=== PATIENT | male | born 1990 | race Caucasian/White ===

== ENCOUNTER 2019-02-24 23:08 | Inpatient (IN) | payer OTHER, SELFPAY ==
[~2019-02-24 23:08] MED LIST: ISOVUE-370 76%-LOCM 1 ML ONE
[2019-02-24] MEDS ORDERED: Adacel (T-DAP) 0.5 ML SYRINGE ONE ×2 (23:27→23:45)
[2019-02-24] MEDS ORDERED: Fentanyl 100 MCG/2 ML VIAL ONE ×2 (23:27→23:50)
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
[2019-02-24 23:37] LABS: Hemoglobin 13.2 g/dL (14.0-18.0); Mean Corpuscular HGB CONC 32.7 g/dL (32.0-36.0); Mean Corpuscular Hemoglobin 30.4 pg (27.0-31.0); Mean Platelet Volume 7.9 fL (7.4-10.4); Platelet Count 255 thou/uL (130-400); Red Blood Cell (RBC) Count 4.34 mill/uL (4.70-6.10); White Blood Cell (WBC) Count 24.7 thou/uL (4.8-10.8)
[2019-02-24 23:42] LABS: INR-International Normal Ratio 1.4; PTT 31.1 SEC (22.9-36.1); Prothrombin Time 17.6 SEC (12.0-14.7)
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
[2019-02-24 23:52] LABS: Band 19 % (5-11); Eosinophils 1 % (0-10); Lymphocytes 30 % (21-51); MDiff Complete? YES; Metamyelocyte 1 % (0-0); Monocytes 1 % (0-10); Myelocyte 1 % (0-0); Neutrophil 45 % (42-75); Reactive Lymphocytes 2 % (0-10)
[2019-02-24] MEDS ORDERED: manNITOL 20% 500 ML ONE (23:53)
[2019-02-24 23:54] LABS: ALT (SGPT) 278 U/L (8-55); AST (SGOT) 389 U/L (5-34); Albumin 3.5 g/dL (3.5-5.0); Alkaline Phosphatase 61 U/L (40-150); Anion Gap 25 mmol/L (10-20); BUN (Urea Nitrogen) 11 mg/dL (8.9-20.6); Bilirubin, Total 0.5 mg/dL (0.2-1.2); Calc. Creatinine Clearance 0 mL/min (70-130); Calcium 7.7 mg/dL (7.8-10.44); Carbon Dioxide 10 mmol/L (22-29); Chloride 99 mmol/L (98-107); Estimated GFR-MDRD 55; Globulin 2.5 g/dL (2.4-3.5); Glucose 205 mg/dL (70-105); Lipase 63 U/L (8-78); Potassium 3.3 mmol/L (3.5-5.1); Sodium 131 mmol/L (136-145)
[2019-02-24 23:56] LABS: Actual Bicarbonate (HCO3a) 12.8 mEq/L (22-28); Analyzer IN Cardio ER; Base Excess (BEa) -14.4 mEq/L (-2.0 to +3.0); CO2 Tension 34.8 mmHg (35.0-45.0); Calcium, Ionized 0.96 mmol/L (1.12-1.30); Carboxyhemoglobin (COHb) 0.6 gm% (0.0-3.0); Hemoglobin (Hb) 12.6 g/dL (14.0-18.0); O2 Tension (PaO2) 92.4 mmHg (80.0-100.0); Potassium - ABG Lab 3.18 mmol/L (3.70-5.30)
[2019-02-24 23:57] LABS: Puncture Site RRA; pH, Arterial 7.19 (7.35-7.45)
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
[2019-02-25] MEDS ORDERED: fentaNYL Citrate/PF 2,000 MCG in Sodium Chloride 0.9% 60 ML IV SCH (00:10)
[2019-02-25] MEDS ORDERED: Propofol 1,000 MG/100 ML VIAL IV ONE (00:16)
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
[2019-02-25 00:20] LABS: Bilirubin Negative (Negative); Blood, Urine Trace (Negative); Clarity CLEAR (Clear); Glucose, Urine (Dipstick) Negative (Negative); Leukocyte Negative (Negative); Nitrite Negative (Negative); Protein, Urine (Dipstick) Negative (Neg-Trace); Specific Gravity, Urine 1.001 (1.002-1.036); Urobilinogen 0.2 mg/dL (0.2-1.0)
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
[2019-02-25 00:22] LABS: Pathc Cast-AUWi Flag 0.27 (0-2.49)
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
[2019-02-25 00:34] LABS: Hyaline Casts/LPF NONE SEEN LPF (0-3 Hyaline); RBC/HPF 0-3 HPF (0-3)
[2019-02-25 00:35] LABS: Bacteria/HPF Rare-Few HPF (None Seen); Squamous Epithelial None Seen HPF (0-3); WBC/HPF 0-3 HPF (0-3)
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
[2019-02-25] MEDS ORDERED: Ventilator Sedation Protocol 1 EACH FS SCH (00:56)
[2019-02-25] MEDS ORDERED: Sodium Chloride 0.9% 1,000 ML IV SCH (00:56)
[2019-02-25] MEDS ORDERED: Dextrose 5% in Water 1,000 ML IV PRN (00:56)
[2019-02-25] MEDS ORDERED: Dextrose 50% Abboject 50 ML SYRINGE SLOW IVP PRN (00:56)
[2019-02-25] MEDS ORDERED: Ondansetron ODT 4 MG TAB PO PRN (00:56)
[2019-02-25] MEDS ORDERED: Ondansetron PF 4 MG/2 ML Vial IVP PRN (00:56)
[2019-02-25] MEDS ORDERED: Morphine 2 MG/ML SYRINGE SLOW IVP PRN (01:07)
[2019-02-25] MEDS ORDERED: Fentanyl BOLUS 250 ML IVPB PRN (01:07)
[2019-02-25] MEDS ORDERED: Lorazepam 2 MG/ML VIAL SLOW IVP PRN (01:07)
[2019-02-25] MEDS ORDERED: Propofol BOLUS 1,000 MG/100 ML VIAL IV PRN (01:07)
[2019-02-25] MEDS ORDERED: DISCONTINUE PREVIOUS NARCOTIC PAIN MEDICATIONS AND BENZODIAZEPINES FS SCH (01:07)
[2019-02-25] MEDS ORDERED: Fentanyl CADD 250 ML IVPB SCH (01:07)
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
[2019-02-25] MEDS: Mannitol 12.5 GM/50 ML SLOW IVP SCH ×4 (02:05→20:08)
[2019-02-25 02:07] LABS: Hemoglobin 15.4 g/dL (14.0-18.0)
--- NOTE | 2019-02-25 04:28 | OP ---
DATE OF PROCEDURE: 02/25/2019 PROCEDURE: Right side ICP monitor placement. PREOPERATIVE DIAGNOSES: Acute traumatic intracranial hemorrhage, diffuse subarachnoid hemorrhage, diffuse contusional injury. PROCEDURE NOTE: The patient's hair was shaved over the right frontal region. The area was prepped with chlorhexidine and draped in sterile fashion. A 1 cm incision was made over Abigail's notch. A twist drill was then used over the incision site through the skull. The dura was perforated with an 18-gauge spinal needle. The [facility] ICP monitor was connected and zeroed. It was then passed through the dura easily and secured in place. Initial opening pressure was 20 with a good waveform. The patient tolerated the procedure well. Job ID: [id number]
[2019-02-25] MEDS: CEFAZOLIN 2 GM in Premix Bag 1 BAG IVPB SCH ×3 (05:36→21:25)
[2019-02-25] MEDS ORDERED: Acetaminophen 1,000 MG in Premix Bag 1 BAG IVPB SCH (05:45)
[2019-02-25] MEDS ORDERED: CEFAZOLIN 1 GM VIAL SLOW IVP SCH (06:00)
[2019-02-25 06:28] LABS: Anion Gap 17 mmol/L (10-20); BUN (Urea Nitrogen) 12 mg/dL (8.9-20.6); Calc. Creatinine Clearance 108 mL/min (70-130); Carbon Dioxide 25 mmol/L (22-29); Chloride 103 mmol/L (98-107); Estimated GFR-MDRD 68; Glucose 117 mg/dL (70-105); Magnesium 2.2 mg/dL (1.6-2.6); Phosphorus 4.8 mg/dL (2.3-4.7); Potassium 4.1 mmol/L (3.5-5.1); Sodium 141 mmol/L (136-145)
[2019-02-25 06:30] LABS: Actual Bicarbonate (HCO3a) 25.3 mEq/L (22-28); Base Excess (BEa) -0.5 mEq/L (-2.0 to +3.0); CO2 Tension 45.4 mmHg (35.0-45.0); Calcium, Ionized 1.11 mmol/L (1.12-1.30); Carboxyhemoglobin (COHb) 0.9 gm% (0.0-3.0); Hemoglobin (Hb) 15.7 g/dL (14.0-18.0); O2 Tension (PaO2) 189.2 mmHg (80.0-100.0); Potassium - ABG Lab 4.22 mmol/L (3.70-5.30); pH, Arterial 7.36 (7.35-7.45)
[2019-02-25 06:31] LABS: Band 38 % (5-11); Lymphocytes 6 % (21-51); MDiff Complete? YES; Metamyelocyte 2 % (0-0); Monocytes 7 % (0-10); Neutrophil 47 % (42-75); Platelet Morphology Comment Appears Adequate
[2019-02-25 06:32] LABS: Puncture Site RRA
[2019-02-25 06:32] LABS: Hemoglobin 15.2 g/dL (14.0-18.0); Mean Corpuscular HGB CONC 32.5 g/dL (32.0-36.0); Mean Corpuscular Hemoglobin 29.3 pg (27.0-31.0); Mean Corpuscular Volume 90.1 fL (78.0-98.0); Platelet Count 208 thou/uL (130-400); RBC Distribution Width 13.8 % (11.5-14.5); Red Blood Cell (RBC) Count 5.19 mill/uL (4.70-6.10); White Blood Cell (WBC) Count 10.7 thou/uL (4.8-10.8)
[2019-02-25] MEDS: Propofol 1,000 MG/100 ML VIAL IV PRN (07:45)
[2019-02-25 09:18] LABS: Actual Bicarbonate (HCO3a) 25.9 mEq/L (22-28); Base Excess (BEa) 0.9 mEq/L (-2.0 to +3.0); CO2 Tension 42.5 mmHg (35.0-45.0); Calcium, Ionized 1.07 mmol/L (1.12-1.30); Carboxyhemoglobin (COHb) 0.7 gm% (0.0-3.0); Hemoglobin (Hb) 15.3 g/dL (14.0-18.0); O2 Tension (PaO2) 88.4 mmHg (80.0-100.0); Potassium - ABG Lab 4.78 mmol/L (3.70-5.30)
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
[2019-02-25 09:20] LABS: Puncture Site RRA
[2019-02-25 09:21] LABS: ALV-art Gradient 357.575 (0-20)
--- NOTE | 2019-02-25 09:22 | RAD ---
CHEST TWO VIEWS: Indication: Follow up intubation. Comparison: 02-24-19 FINDINGS: There is worsening airspace opacity within both lower lobes suspicious for worsening contusion or asp iration. There is perihilar airspace opacities which may be related to volume overload or additional regions of scattered perihilar contusions. Patient is intubated with gastric catheter placement. No d efinite pleural effusion is evident. There is a very tiny right apical pneumothorax that is below 10% in size. IMPRESSION: 1. Worsening perihilar airspace opacity may reflect worsening edema or hemorrhage. This is much more prominent within the infrahilar regions which may reflect worsening hemorrhage, contusions, or bilat eral aspiration. 2. Tiny right apical pneumothorax. The tiny right sided pneumothorax is likely stable to a comparison CT dated 02-24-19. 3. Intubation and gastric catheter placement. POS: [facility]
--- NOTE | 2019-02-25 09:32 | CT ---
CT OF THE BRAIN WITHOUT CONTRAST: INDICATION: Followup intracranial hemorrhage. COMPARISON: Prior exam dated 02/24/2019. FINDINGS: The intraparenchymal contusions involving the right inferotemporal lobe have increased in prominence. There are evolving contusions now present on the inferior aspects of both frontal lobes. The large st collection measures 2.6 x 0.9 cm on image 11 of series 2. The largest collection through the ante rior right temporal lobe measures approximately 1.5 cm. This is also seen on image 11 series 2. The re are small petechial hemorrhages that have developed along the left temporal lobe on image 15 of se jesse 2. The bilateral frontal lobe contusions have increased in prominence on image 24 of series 2. Scattered subarachnoid hemorrhage is relatively stable. There is some retained subarachnoid hemorrh age seen within the interpeduncular cistern of the middle cranial fossa. There is redistribution of the intraventricular hemorrhage within both lateral ventricles. The extraaxial hemorrhage overlying the anterior left temporal lobe is relatively stable. A small amount of subarachnoid hemorrhage over lies the lower anterior biju which is relatively stable. The subdural hematoma seen along the script supervisor ior falx and tentorium cerebelli is relatively stable. No midline shift or hydrocephalus is present. The crowding of the basilar cisterns in the basement of the cerebral sulci is relatively stable. T here has been interval placement of the intracranial bolt involving the right frontal regions. This projects into the right frontal lobe. The stellate skull base fractures extending obliquely across t he right temporal region, right TMJ, sphenoid bone, and into the left maxillary sinus is stable. The re is prominent air fluid level seen within the visualized paranasal sinuses. There is a small amoun t of effusion present within the right mastoid air cells. IMPRESSION: 1. Worsening and evolving intraparenchymal hematomas involving the frontal convexities, inferior fro ntal lobes, and anterior temporal lobes. 2. Redistribution of the subarachnoid hemorrhage now layered within both lateral ventricles and laye red within cisterns of the middle cranial fossa. 3. Stable extraaxial hemorrhage overlying the anterior left temporal lobe and stable subdural hemato ma involving the posterior falx and tentorium cerebelli. 4. Interval placement of a right frontal intracranial bolt with the tip projecting to the region of the right frontal lobe. 5. Diffuse cerebral edema with several sulcal effacement and crowding of basilar cisterns stable. 6. Stable skull base fracture. 7. Findings were called to FRANCISCO May, at 4:52 a.m. on 02/25/2019. CODE CR POS: [facility]
[2019-02-25] MEDS: Famotidine/PF 20 mg/2ml Vial SLOW IVP SCH ×2 (10:01→21:26)
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
[2019-02-25] MEDS: Bacitracin Zinc Ointment 30 gm TUBE TOP SCH (11:31)
[2019-02-25] MEDS: Acetaminophen 1,000 MG in Premix Bag 1 BAG IVPB SCH ×2 (11:31→14:17)
[2019-02-25] MEDS ORDERED: Albumin 5% 500 ML ONE (12:13)
[2019-02-25] MEDS ORDERED: Calcium Chloride 1 GM/10 ML Abboject SYRINGE IVP SCH (13:45)
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
[2019-02-25] MEDS: Acetaminophen 650 MG/20.3 ML UDCUP PER TUBE SCH ×2 (14:18→18:17)
[2019-02-25 15:40] LABS: ALV-art Gradient 228.625 (0-20); Actual Bicarbonate (HCO3a) 24.5 mEq/L (22-28); Base Excess (BEa) 0.6 mEq/L (-2.0 to +3.0); CO2 Tension 37.1 mmHg (35.0-45.0); Calcium, Ionized 1.21 mmol/L (1.12-1.30); Carboxyhemoglobin (COHb) 0.7 gm% (0.0-3.0); Hemoglobin (Hb) 13.3 g/dL (14.0-18.0); O2 Tension (PaO2) 81.5 mmHg (80.0-100.0); Potassium - ABG Lab 4.24 mmol/L (3.70-5.30); Puncture Site LINE; pH, Arterial 7.44 (7.35-7.45)
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
[2019-02-25] MEDS: Sodium Chloride 0.9% 1,000 ML IV SCH (18:19)
--- NOTE | 2019-02-25 20:15 | OP ---
DATE OF PROCEDURE: 02/25/2019 INDICATION: Art-line placement for invasive monitoring. CONSENT: Implied. PROCEDURE SUMMARY: A time-out was performed. My hands were washed immediately prior to the procedure. I wore surgical cap, mask with protective eye wear, sterile gown, and sterile gloves throughout the procedure. After Earnest test was performed to ensure adequate perfusion, the left wrist was prepped using chlorhexidine scrub and draped in a sterile fashion using the 3/4 sheet drape and sterile towels. The radial pulse was identified and the wrist was positioned in the usual fashion. Using an Arrow radial arterial line kit, a needle was inserted into the radial artery. Arterial blood was seen to pulsate in the flash chamber. The catheter was advanced easily into the radial artery. The needle was withdrawn. The catheter was sutured in place. Sterile Op-site was placed over the catheter at the insertion site. The patient tolerated the procedure without any hemodynamics compromise. At the time of the procedure completion, the catheter was connected to the cardiac tech and calibrated. Appropriate waveform and blood pressure tracing were observed. Estimated blood loss was approximately 5 mL. The plan was discussed with Dr. Simons, who agreed for art-line placement. Job ID: [id number]
[2019-02-25] MEDS ORDERED: Sodium Chloride 0.9% 500 ML IVPB PRN (22:27)
[2019-02-26] MEDS: Acetaminophen 650 MG/20.3 ML UDCUP PER TUBE SCH ×5 (00:15→23:13)
[2019-02-26] MEDS: Sodium Chloride 0.9% 1,000 ML IV SCH ×3 (00:16→23:14)
[2019-02-26] MEDS: Mannitol 12.5 GM/50 ML SLOW IVP SCH ×2 (00:16→08:17)
[2019-02-26 04:17] LABS: Anion Gap 14 mmol/L (10-20); BUN (Urea Nitrogen) 21 mg/dL (8.9-20.6); Calc. Creatinine Clearance 125 mL/min (70-130); Calcium 8.9 mg/dL (7.8-10.44); Carbon Dioxide 24 mmol/L (22-29); Chloride 109 mmol/L (98-107); Estimated GFR-MDRD 80; Glucose 141 mg/dL (70-105); Magnesium 2.6 mg/dL (1.6-2.6); Potassium 3.8 mmol/L (3.5-5.1); Sodium 143 mmol/L (136-145)
[2019-02-26 04:39] LABS: Band 25 % (5-11); Hemoglobin 11.5 g/dL (14.0-18.0); Lymphocytes 13 % (21-51); MDiff Complete? YES; Mean Corpuscular HGB CONC 33.7 g/dL (32.0-36.0); Mean Corpuscular Hemoglobin 30.8 pg (27.0-31.0); Mean Corpuscular Volume 91.4 fL (78.0-98.0); Mean Platelet Volume 8.6 fL (7.4-10.4); Monocytes 5 % (0-10); Neutrophil 57 % (42-75); Platelet Count 143 thou/uL (130-400); Red Blood Cell (RBC) Count 3.73 mill/uL (4.70-6.10); White Blood Cell (WBC) Count 12.2 thou/uL (4.8-10.8)
[2019-02-26] MEDS: Propofol 1,000 MG/100 ML VIAL IV PRN (05:20)
[2019-02-26] MEDS: CEFAZOLIN 2 GM in Premix Bag 1 BAG IVPB SCH ×3 (05:21→21:31)
--- NOTE | 2019-02-26 07:46 | RAD ---
AP VIEW CHEST: HISTORY: Respiratory failure. AP view chest obtained on 02/26/2019. Comparison made to a previous exam from 02/25/2019. FINDINGS: AP view chest demonstrates nasogastric and endotracheal tubes to be in place. A left subclavian centr al line is in place. Mild cardiomegaly seen. Pulmonary vascular congestion seen. There are some decreased airspace opacities in the right and left lung bases. Right clavicular fracture again seen. IMPRESSION: 1.: Decreased pulmonary vascular congestion and airspace opacities. 2: Lines and tubes in good position. Transcribed Date/Time: 02/26/2019 8:11 AM
--- NOTE | 2019-02-26 08:19 | OP ---
DATE OF PROCEDURE: 02/25/2019 PROCEDURE PERFORMED: Subclavian central line. INDICATION: Need for central venous access. Attending physician in attendance throughout the procedure, Dr. Du Simons. CONSENT: Consent was obtained from the family prior to procedure. Indication, risks, benefits were explained at length. Time-out was performed. Operative physicians sterilely gowned, gloved, and had protective eyewear and hat on during procedure. DESCRIPTION OF PROCEDURE: The patient was placed in Trendelenburg position. The left chest region was prepped using chlorhexidine, scrubbed and draped in sterile fashion using a foam drape. Anesthesia was achieved with 1% lidocaine. Introducer needle was inserted at the angle of Ted with the clavicle aiming at the suprasternal notch. Venous blood was withdrawn. Syringe was removed, and a guidewire was advanced into the introducer needle. Small incision was made in the skin surface with a scalpel and introducer needle was exchanged for dilator over the guidewire. After appropriate dilation was obtained, the dilator was exchanged over the wire for a 7-gauge central venous catheter. The wire was removed and the catheter was sutured in place at the 15 cm position. A sterile dressing was placed over the catheter at the insertion site. The patient tolerated the procedure well without any hemodynamic compromise. At the time of the procedure completion, all ports aspirated and flushed properly. A postprocedure x-ray showed correct placement of central venous catheter and intact lungs without evidence of pneumothorax. Estimated blood loss was 25 mL. Job ID: [id number]
[2019-02-26 09:03] LABS: Actual Bicarbonate (HCO3a) 21.7 mEq/L (22-28); Base Excess (BEa) -0.5 mEq/L (-2.0 to +3.0); CO2 Tension 28.2 mmHg (35.0-45.0); Calcium, Ionized 1.12 mmol/L (1.12-1.30); Carboxyhemoglobin (COHb) 0.8 gm% (0.0-3.0); Hemoglobin (Hb) 11.3 g/dL (14.0-18.0); O2 Tension (PaO2) 147.2 mmHg (80.0-100.0); Potassium - ABG Lab 3.68 mmol/L (3.70-5.30)
[2019-02-26 09:12] LABS: Puncture Site ART LINE
[2019-02-26] MEDS: Famotidine/PF 20 mg/2ml Vial SLOW IVP SCH ×2 (09:28→20:54)
[2019-02-26] MEDS: Bacitracin Zinc Ointment 30 gm TUBE TOP SCH (09:31)
[2019-02-26 10:08] LABS: Actual Bicarbonate (HCO3a) 23.4 mEq/L (22-28); CO2 Tension 34.1 mmHg (35.0-45.0); Calcium, Ionized 1.12 mmol/L (1.12-1.30); Carboxyhemoglobin (COHb) 0.7 gm% (0.0-3.0); Hemoglobin (Hb) 11.6 g/dL (14.0-18.0); O2 Tension (PaO2) 151.4 mmHg (80.0-100.0); pH, Arterial 7.46 (7.35-7.45)
[2019-02-26 10:12] LABS: ALV-art Gradient 162.475 (0-20)
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
[2019-02-26 14:41] LABS: Actual Bicarbonate (HCO3a) 25.8 mEq/L (22-28); Base Excess (BEa) 1.1 mEq/L (-2.0 to +3.0); CO2 Tension 41.8 mmHg (35.0-45.0); Calcium, Ionized 1.15 mmol/L (1.12-1.30); Carboxyhemoglobin (COHb) 0.7 gm% (0.0-3.0); Hemoglobin (Hb) 11.6 g/dL (14.0-18.0); O2 Tension (PaO2) 112.9 mmHg (80.0-100.0); Potassium - ABG Lab 4.02 mmol/L (3.70-5.30); pH, Arterial 7.41 (7.35-7.45)
[2019-02-26 14:45] LABS: Puncture Site ART LINE
[2019-02-26] MEDS ORDERED: Acetaminophen/Codeine 120-12MG/5 ML UDCUP PO PRN (15:16)
[2019-02-26 17:20] LABS: Bilirubin Negative (Negative); Blood, Urine Moderate (Negative); Clarity CLEAR (Clear); Glucose, Urine (Dipstick) Negative (Negative); Leukocyte Negative (Negative); Nitrite Negative (Negative); Protein, Urine (Dipstick) 30 mg/dL (Neg-Trace); Specific Gravity, Urine 1.039 (1.002-1.036); Urobilinogen 0.2 mg/dL (0.2-1.0); pH, Urine 6.5 (5.0-9.0)
[2019-02-26 17:22] LABS: Bacteria/HPF None Seen HPF (None Seen); Hyaline Casts/LPF 0-3 HYALINE CAST LPF (0-3 Hyaline); Pathc Cast-AUWi Flag 0.27 (0-2.49); RBC/HPF 0-3 HPF (0-3); Squamous Epithelial 0-3 HPF (0-3); WBC/HPF 0-3 HPF (0-3)
[2019-02-26 17:29] LABS: Urine Culture Reflex No No
[2019-02-26] MEDS: Piperacillin/Tazobactam 3.375 GM in Sodium Chloride 0.9% 100 ML IVPB SCH ×2 (17:34→23:13)
[2019-02-26] MEDS ORDERED: Fentanyl 100 MCG/2 ML VIAL SLOW IVP PRN (17:44)
[2019-02-26] MEDS ORDERED: Midazolam HCl 2 mg/2 ml Vial SLOW IVP PRN (17:44)
[2019-02-26] MEDS: Morphine 2 MG/ML SYRINGE SLOW IVP PRN (18:29)
[2019-02-26] MEDS: Senokot 8.6 MG TAB PO SCH (20:54)
[2019-02-26] MEDS: Amantadine HCl 100 mg Capsule PO SCH (20:54)
[2019-02-27] MEDS: Morphine 2 MG/ML SYRINGE SLOW IVP PRN ×3 (01:17→23:07)
[2019-02-27] MEDS: CEFAZOLIN 2 GM in Premix Bag 1 BAG IVPB SCH ×3 (05:15→21:05)
[2019-02-27] MEDS: Sodium Chloride 0.9% 1,000 ML IV SCH ×2 (05:15→21:04)
[2019-02-27] MEDS: Acetaminophen 650 MG/20.3 ML UDCUP PER TUBE SCH ×4 (05:15→23:08)
[2019-02-27] MEDS: Piperacillin/Tazobactam 3.375 GM in Sodium Chloride 0.9% 100 ML IVPB SCH ×4 (05:15→23:08)
[2019-02-27 06:03] LABS: Band 10 % (5-11); Eosinophils 2 % (0-10); Hemoglobin 9.9 g/dL (14.0-18.0); Lymphocytes 7 % (21-51); MDiff Complete? YES; Mean Corpuscular HGB CONC 33.4 g/dL (32.0-36.0); Mean Corpuscular Volume 92.9 fL (78.0-98.0); Mean Platelet Volume 8.4 fL (7.4-10.4); Monocytes 5 % (0-10); Neutrophil 76 % (42-75); Platelet Count 127 thou/uL (130-400); RBC Distribution Width 13.5 % (11.5-14.5); White Blood Cell (WBC) Count 11.5 thou/uL (4.8-10.8)
[2019-02-27 06:09] LABS: Anion Gap 10 mmol/L (10-20); BUN (Urea Nitrogen) 16 mg/dL (8.9-20.6); Calc. Creatinine Clearance 178 mL/min (70-130); Calcium 8.5 mg/dL (7.8-10.44); Carbon Dioxide 25 mmol/L (22-29); Chloride 113 mmol/L (98-107); Estimated GFR-MDRD Greater than 90; Glucose 140 mg/dL (70-105); Magnesium 2.4 mg/dL (1.6-2.6); Phosphorus 1.9 mg/dL (2.3-4.7); Sodium 144 mmol/L (136-145)
[2019-02-27 06:21] LABS: Actual Bicarbonate (HCO3a) 23.5 mEq/L (22-28); CO2 Tension 38.8 mmHg (35.0-45.0); Calcium, Ionized 1.16 mmol/L (1.12-1.30); Carboxyhemoglobin (COHb) 0.3 gm% (0.0-3.0); Hemoglobin (Hb) 10.5 g/dL (14.0-18.0); O2 Tension (PaO2) 77.2 mmHg (80.0-100.0); Potassium - ABG Lab 4.01 mmol/L (3.70-5.30); Puncture Site ALINE
--- NOTE | 2019-02-27 07:10 | CT ---
HEAD CT NONCONTRAST: Date: 02/27/19 COMPARISON: 02/25/19. FINDINGS: Intracranial hemorrhage, follow-up. FINDINGS: Redemonstration of multifocal bilateral parenchymal hematomas, which reveal surrounding vasogenic griselda ma, notably involving the bifrontal lobes, anterior pole left temporal lobe, medial right temporal lo be, and the right subinsular region. There is a more conspicuous small hematoma within the anterior b justina of the right caudate nucleus. Mild scattered subarachnoid hemorrhage remains bilaterally. There i s persistence of bilateral intraventricular hemorrhage. Right frontal approach intracranial pressure monitor remains. Left middle cranial fossa extra-axial hemorrhage persists. Mild degree of subdural h ematoma remains along the tentorium cerebelli, and along the interhemispheric falx. Calvarial fractur e lucencies are similar. There is mild increase with regard to volume of paranasal sinus fluid, withi n the left maxillary sinus, and within right mastoid air cells. Generalized scalp prominence is prese nt, most notable at the left occipital region. IMPRESSION: Persistence of multifocal intraparenchymal and extra-axial hemorrhage bilaterally. There is a more co nspicuous small hematoma involving the right caudate nucleus. This could be result of diffuse axonal injury. When clinically feasible, follow-up with brain MRI would prove useful. POS: BIANKA
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
[2019-02-27] MEDS ORDERED: Sodium Phosphate 30 MMOL in Sodium Chloride 0.9% 250 ML 250 ML IVPB SCH (08:00)
[2019-02-27] MEDS: Bacitracin Zinc Ointment 30 gm TUBE TOP SCH (09:41)
[2019-02-27] MEDS: Senokot 8.6 MG TAB PO SCH ×2 (09:42→21:04)
[2019-02-27] MEDS: Famotidine/PF 20 mg/2ml Vial SLOW IVP SCH ×2 (09:42→21:04)
[2019-02-27] MEDS: Amantadine HCl 100 mg Capsule PO SCH ×2 (09:44→21:04)
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
[2019-02-28] MEDS: Piperacillin/Tazobactam 3.375 GM in Sodium Chloride 0.9% 100 ML IVPB SCH ×3 (05:41→17:29)
[2019-02-28] MEDS: CEFAZOLIN 2 GM in Premix Bag 1 BAG IVPB SCH (05:42)
[2019-02-28] MEDS: Acetaminophen 650 MG/20.3 ML UDCUP PER TUBE SCH ×3 (05:42→17:29)
[2019-02-28 07:06] LABS: #Eosinphils 0.2 thou/uL (0.0-0.7); #Lymphocytes 1.1 thou/uL (1.20-3.40); #Monocytes 0.5 thou/uL (0.11-0.59); %Basophils 0.4 % (0.0-1.0); %Eosinophils 1.9 % (0.0-10.0); %Lymphocytes 11.3 % (21.0-51.0); %Monocytes 5.5 % (0.0-10.0); Hemoglobin 9.6 g/dL (14.0-18.0); Mean Corpuscular HGB CONC 31.5 g/dL (32.0-36.0); Mean Corpuscular Hemoglobin 29.3 pg (27.0-31.0); Mean Corpuscular Volume 92.9 fL (78.0-98.0); Mean Platelet Volume 8.3 fL (7.4-10.4); Platelet Count 152 thou/uL (130-400); RBC Distribution Width 13.4 % (11.5-14.5); White Blood Cell (WBC) Count 9.9 thou/uL (4.8-10.8)
[2019-02-28] MEDS: Sodium Chloride 0.9% 1,000 ML IV SCH ×3 (07:20→14:37)
[2019-02-28] MEDS: Morphine 4 MG/ML VIAL SLOW IVP PRN ×2 (07:37→09:42)
[2019-02-28] MEDS: hydrALAZINE 20 MG/ML VIAL SLOW IVP PRN (07:45)
--- NOTE | 2019-02-28 07:58 | RAD ---
AP VIEW CHEST: 02/28/2019 HISTORY: Intubated patient. COMPARISON: Previous exam from 02/26/2019. FINDINGS: AP view chest demonstrates nasogastric and endotracheal tubes to be in place. A left subclavian cent ral line is in place. Cardiomegaly is seen. Pulmonary vascular congestion is seen. Areas of air space opacity are seen in the right middle lobe and in both lung bases. These appear to have increased since the previous exam, compatible with worsening bibasilar and right middle lobe pneumonia. IMPRESSION: Increasing lung base air space opacities, compatible with pneumonia. Transcribed Date/Time: 02/28/2019 8:47 AM
[2019-02-28 08:16] LABS: Anion Gap 12 mmol/L (10-20); BUN (Urea Nitrogen) 16 mg/dL (8.9-20.6); Calc. Creatinine Clearance 180 mL/min (70-130); Calcium 8.6 mg/dL (7.8-10.44); Carbon Dioxide 24 mmol/L (22-29); Chloride 116 mmol/L (98-107); Estimated GFR-MDRD Greater than 90; Glucose 119 mg/dL (70-105); Magnesium 2.3 mg/dL (1.6-2.6); Potassium 3.7 mmol/L (3.5-5.1); Sodium 148 mmol/L (136-145)
[2019-02-28] MEDS: Bacitracin Zinc Ointment 30 gm TUBE TOP SCH (08:36)
[2019-02-28] MEDS: Famotidine/PF 20 mg/2ml Vial SLOW IVP SCH ×2 (08:36→20:53)
[2019-02-28] MEDS: Senokot 8.6 MG TAB PO SCH ×3 (08:38→20:53)
[2019-02-28] MEDS: Amantadine HCl 100 mg Capsule PO SCH ×3 (08:38→20:53)
[2019-02-28] MEDS: cloNIDine 0.2 MG TAB PER TUBE SCH ×3 (09:20→21:13)
[2019-02-28] MEDS: Vancomycin HCl 1.5 GM in Sodium Chloride 0.9% 250 ML 300 ML IVPB SCH ×2 (09:27→20:57)
[2019-02-28] MEDS ORDERED: Sterile Water 10 ML ONE (10:38)
[2019-02-28] MEDS ORDERED: Lidocaine 1% w/Epinephrine 1:100K 20 ML VIAL ONE (10:38)
[2019-02-28] MEDS ORDERED: Vecuronium 10 MG VIAL ONE ×2 (10:38→11:05)
[2019-02-28] MEDS ORDERED: Fentanyl 100 MCG/2 ML VIAL ONE ×4 (10:38→11:29)
[2019-02-28] MEDS ORDERED: Midazolam HCl 2 mg/2 ml Vial ONE ×4 (10:39→11:29)
[2019-02-28] MEDS ORDERED: Midazolam HCl 2 mg/2 ml Vial IVP SCH (10:45)
[2019-02-28] MEDS ORDERED: Sterile Water 10 ML VIAL FS SCH (10:45)
[2019-02-28] MEDS ORDERED: Lidocaine 1% w/Epinephrine 1:100K 20 ML VIAL FS SCH (10:45)
[2019-02-28] MEDS ORDERED: Midazolam HCl 2 mg/2 ml Vial SLOW IVP SCH (10:45)
[2019-02-28] MEDS ORDERED: Vecuronium 10 MG VIAL IV SCH (10:45)
[2019-02-28] MEDS ORDERED: Fentanyl 100 MCG/2 ML VIAL SLOW IVP SCH ×2 (10:45)
[2019-02-28] MEDS ORDERED: Sterile Water 20 ML ONE (11:05)
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
[2019-03-01] MEDS: Acetaminophen 650 MG/20.3 ML UDCUP PER TUBE SCH ×5 (00:04→23:55)
[2019-03-01] MEDS: Piperacillin/Tazobactam 3.375 GM in Sodium Chloride 0.9% 100 ML IVPB SCH ×5 (00:04→23:55)
[2019-03-01 04:33] LABS: #Eosinphils 0.4 thou/uL (0.0-0.7); #Lymphocytes 1.1 thou/uL (1.20-3.40); #Monocytes 0.8 thou/uL (0.11-0.59); #Neutrophils 6.5 thou/uL (1.40-6.50); %Basophils 0.2 % (0.0-1.0); %Eosinophils 4.9 % (0.0-10.0); %Lymphocytes 12.3 % (21.0-51.0); %Monocytes 9.1 % (0.0-10.0); %Neutrophils 73.5 % (42.0-75.0); Mean Corpuscular HGB CONC 33.3 g/dL (32.0-36.0); Mean Corpuscular Hemoglobin 31.3 pg (27.0-31.0); Mean Corpuscular Volume 93.8 fL (78.0-98.0); Mean Platelet Volume 8.4 fL (7.4-10.4); Platelet Count 163 thou/uL (130-400); RBC Distribution Width 13.3 % (11.5-14.5); Red Blood Cell (RBC) Count 2.89 mill/uL (4.70-6.10); White Blood Cell (WBC) Count 8.8 thou/uL (4.8-10.8)
[2019-03-01 04:59] LABS: Anion Gap 11 mmol/L (10-20); BUN (Urea Nitrogen) 20 mg/dL (8.9-20.6); Calc. Creatinine Clearance 185 mL/min (70-130); Calcium 8.7 mg/dL (7.8-10.44); Carbon Dioxide 24 mmol/L (22-29); Chloride 119 mmol/L (98-107); Estimated GFR-MDRD Greater than 90; Glucose 102 mg/dL (70-105); Magnesium 2.3 mg/dL (1.6-2.6); Phosphorus 3.8 mg/dL (2.3-4.7); Potassium 3.9 mmol/L (3.5-5.1); Sodium 150 mmol/L (136-145)
[2019-03-01] MEDS: cloNIDine 0.2 MG TAB PER TUBE SCH ×4 (06:18→20:32)
[2019-03-01] MEDS: Sodium Chloride 0.9% 1,000 ML IV SCH (06:19)
[2019-03-01] MEDS: Morphine 4 MG/ML VIAL SLOW IVP PRN ×3 (07:59→20:17)
[2019-03-01] MEDS: Famotidine/PF 20 mg/2ml Vial SLOW IVP SCH ×2 (08:01→20:32)
[2019-03-01] MEDS: Senokot 8.6 MG TAB PO SCH ×2 (08:01→20:34)
[2019-03-01] MEDS: hydrALAZINE 20 MG/ML VIAL SLOW IVP PRN (08:06)
[2019-03-01] MEDS: Bacitracin Zinc Ointment 30 gm TUBE TOP SCH (08:06)
[2019-03-01] MEDS: Amantadine HCl 100 mg Capsule PO SCH ×2 (08:14→20:33)
--- NOTE | 2019-03-01 08:35 | RAD ---
AP VIEW CHEST: HISTORY: Pneumonia. FINDINGS: AP view chest is obtained on 03/01/2019. Comparison is made to previous exam from 02/28/2019. AP view chest demonstrates removal of NG and endotracheal tubes. The patient has had placement of a t racheostomy tube. Left subclavian central line is in place. Cardiomegaly and pulmonary vascular congestion is seen. Bilateral airspace opacities seen compatible with bilateral pneumonia more prominent on the right medina n on the left. IMPRESSION: Interval exchange of the endotracheal tube for a tracheostomy tube. Transcribed Date/Time: 03/01/2019 8:39 AM
[2019-03-01] MEDS: Vancomycin HCl 1.5 GM in Sodium Chloride 0.9% 250 ML 300 ML IVPB SCH ×2 (08:52→21:11)
[2019-03-01] MEDS ORDERED: Bisacodyl 10 MG SUPP PR SCH (10:15)
[2019-03-01] MEDS ORDERED: Senokot S 8.6-50 MG TAB PO SCH (10:15)
[2019-03-01] MEDS ORDERED: Milk Of Magnesia 30 ML UDCUP PO SCH (10:15)
[2019-03-01] MEDS ORDERED: Polyethylene Glycol 3350 17 GM Packet PO SCH (10:15)
[2019-03-01] MEDS: Senokot S 8.6-50 MG TAB PO SCH ×2 (10:20→20:34)
[2019-03-01] MEDS: Milk Of Magnesia 30 ML UDCUP PO SCH (10:20)
[2019-03-01] MEDS: Polyethylene Glycol 3350 17 GM Packet PO SCH (10:20)
--- NOTE | 2019-03-01 12:31 | PRG ---
DATE OF SERVICE: 03/01/2019 SUBJECTIVE: Mr. Terry is 4 days into his hospitalization. His ICP monitor wound is healing well and dry. The patient attempts to move his head to the right. He prefers to keep his eyes closed. He does weakly localize in all 4 extremities to noxious stimuli, which is an improvement. His sodium is at 150 and our Trauma Team has made changes to his free water flushes. I am very pleased with the patient's recovery. At this point, we will continue to watch him closely. We thank the trauma service as well for their excellent care. Job ID: [id number]
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
[2019-03-01 20:59] LABS: Vancomycin, Trough 4.9 ug/mL
[2019-03-02] MEDS: Morphine 4 MG/ML VIAL SLOW IVP PRN ×6 (00:06→20:32)
[2019-03-02] MEDS: cloNIDine 0.2 MG TAB PER TUBE SCH ×4 (03:19→20:12)
[2019-03-02] MEDS ORDERED: Vancomycin HCl 1.75 GM in Sodium Chloride 0.9% 500 ML IVPB SCH (05:00)
[2019-03-02 05:08] LABS: Band 3 % (5-11); Eosinophils 6 % (0-10); Hemoglobin 9.1 g/dL (14.0-18.0); Lymphocytes 5 % (21-51); MDiff Complete? YES; Mean Corpuscular HGB CONC 33.7 g/dL (32.0-36.0); Mean Corpuscular Hemoglobin 31.5 pg (27.0-31.0); Mean Corpuscular Volume 93.5 fL (78.0-98.0); Mean Platelet Volume 8.4 fL (7.4-10.4); Monocytes 6 % (0-10); Neutrophil 80 % (42-75); Platelet Count 211 thou/uL (130-400); Platelet Morphology Comment Appears Adequate; RBC Distribution Width 13.2 % (11.5-14.5); RBC Morphology Normal; Red Blood Cell (RBC) Count 2.88 mill/uL (4.70-6.10); White Blood Cell (WBC) Count 10.7 thou/uL (4.8-10.8)
[2019-03-02 05:19] LABS: Anion Gap 13 mmol/L (10-20); BUN (Urea Nitrogen) 21 mg/dL (8.9-20.6); Calc. Creatinine Clearance 208 mL/min (70-130); Calcium 8.6 mg/dL (7.8-10.44); Carbon Dioxide 23 mmol/L (22-29); Chloride 117 mmol/L (98-107); Estimated GFR-MDRD Greater than 90; Glucose 135 mg/dL (70-105); Magnesium 2.1 mg/dL (1.6-2.6); Phosphorus 2.8 mg/dL (2.3-4.7); Potassium 3.6 mmol/L (3.5-5.1); Sodium 149 mmol/L (136-145)
[2019-03-02] MEDS: Piperacillin/Tazobactam 3.375 GM in Sodium Chloride 0.9% 100 ML IVPB SCH ×4 (07:08→23:33)
[2019-03-02] MEDS: Acetaminophen 650 MG/20.3 ML UDCUP PER TUBE SCH ×4 (07:08→23:34)
[2019-03-02] MEDS: Amantadine HCl 100 mg Capsule PO SCH ×2 (08:56→20:12)
[2019-03-02] MEDS: Bisacodyl 10 MG SUPP PR SCH (08:57)
[2019-03-02] MEDS: Bacitracin Zinc Ointment 30 gm TUBE TOP SCH (08:57)
[2019-03-02] MEDS: Famotidine/PF 20 mg/2ml Vial SLOW IVP SCH ×2 (08:58→20:12)
[2019-03-02] MEDS: Milk Of Magnesia 30 ML UDCUP PO SCH (08:58)
[2019-03-02] MEDS: Senokot S 8.6-50 MG TAB PO SCH ×2 (08:58→20:11)
[2019-03-02] MEDS ORDERED: Potassium Phosphate 15 MMOL in Sodium Chloride 0.9% 250 ML 250 ML IVPB SCH (09:00)
[2019-03-02] MEDS: Polyethylene Glycol 3350 17 GM Packet PO SCH (09:01)
[2019-03-02] MEDS: Senokot 8.6 MG TAB PO SCH ×2 (09:21→20:10)
--- NOTE | 2019-03-02 12:26 | PRG ---
DATE OF SERVICE: 03/02/2019 SUBJECTIVE: Harrison continues to demonstrate some improvement. He spontaneously moves on the right upper and right lower and will reflexively grab my hand this morning, although when I try and elicit to noxious stimuli, shakes his head back and forth as such I do think he is improving. He moves the left side less so, but he continues to demonstrate improvement. I have updated his family. Job ID: [id number]
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
[2019-03-03] MEDS: Morphine 4 MG/ML VIAL SLOW IVP PRN ×5 (01:16→23:48)
[2019-03-03] MEDS: cloNIDine 0.2 MG TAB PER TUBE SCH ×2 (03:52→08:36)
[2019-03-03] MEDS: Piperacillin/Tazobactam 3.375 GM in Sodium Chloride 0.9% 100 ML IVPB SCH (05:40)
[2019-03-03] MEDS: Acetaminophen 650 MG/20.3 ML UDCUP PER TUBE SCH ×4 (05:40→23:48)
[2019-03-03 06:17] LABS: Band 1 % (5-11); Eosinophils 2 % (0-10); Hemoglobin 9.3 g/dL (14.0-18.0); Hypochromia SLIGHT = 6-15 cells (100X) (0-5/hpf); Lymphocytes 7 % (21-51); MDiff Complete? YES; Mean Corpuscular HGB CONC 32.7 g/dL (32.0-36.0); Mean Corpuscular Hemoglobin 30.5 pg (27.0-31.0); Mean Corpuscular Volume 93.4 fL (78.0-98.0); Mean Platelet Volume 8.2 fL (7.4-10.4); Monocytes 6 % (0-10); Neutrophil 84 % (42-75); Platelet Count 288 thou/uL (130-400); Platelet Morphology Comment Appears Adequate; RBC Distribution Width 13.3 % (11.5-14.5); Red Blood Cell (RBC) Count 3.05 mill/uL (4.70-6.10); White Blood Cell (WBC) Count 12.1 thou/uL (4.8-10.8)
[2019-03-03 06:31] LABS: Anion Gap 11 mmol/L (10-20); BUN (Urea Nitrogen) 19 mg/dL (8.9-20.6); Calc. Creatinine Clearance 205 mL/min (70-130); Calcium 8.4 mg/dL (7.8-10.44); Carbon Dioxide 23 mmol/L (22-29); Chloride 112 mmol/L (98-107); Estimated GFR-MDRD Greater than 90; Glucose 107 mg/dL (70-105); Magnesium 2.1 mg/dL (1.6-2.6); Potassium 3.6 mmol/L (3.5-5.1); Sodium 142 mmol/L (136-145)
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
--- NOTE | 2019-03-03 07:33 | ULT ---
EXAM: Bilateral lower extremity venous Doppler evaluation PROVIDED CLINICAL HISTORY: Traumatic brain injury with no anticoagulation concern for deep venous thrombosis TECHNIQUE: Grayscale, color doppler and spectral doppler images were obtained of the common femoral , femoral, profunda femoral, popliteal and posterior tibial veins of both lower extremities. FINDINGS: There is normal compression, flow and augmentation seen with the deep venous structures within both l ower extremities. IMPRESSION: No sonographic evidence for lower extremity deep venous thrombosis.
[2019-03-03] MEDS ORDERED: Potassium Chloride 20 MEQ in Premix Bag 1 BAG IVPB SCH (07:45)
--- NOTE | 2019-03-03 07:51 | RAD ---
Chest AP view INDICATION: History of pneumonia COMPARISON: March 01, 2019 FINDINGS: Lungs:There is improvement in the consolidation involving the right lung base. Cardiac silhouette pulmonary vasculature:Moderate cardiomegaly and pulmonary vascular congestion pers ists Pleural spaces:Small bilateral pleural effusions are stable. Upper abdomen:No abnormality seen. Osseous structures: There is a stable comminuted right midshaft clavicle fracture. The tracheostomy tube and left subclavian central venous catheter are unchanged. IMPRESSION: Improvement in the right lung base airspace consolidation likely reflecting improving pne umonia. Otherwise examination is unchanged from the comparison.
[2019-03-03] MEDS: Famotidine/PF 20 mg/2ml Vial SLOW IVP SCH ×2 (08:34→20:52)
[2019-03-03] MEDS: Amantadine HCl 100 mg Capsule PO SCH ×2 (08:35→20:53)
[2019-03-03] MEDS: Bacitracin Zinc Ointment 30 gm TUBE TOP SCH (08:35)
[2019-03-03] MEDS: Milk Of Magnesia 30 ML UDCUP PO SCH (08:36)
[2019-03-03] MEDS: Polyethylene Glycol 3350 17 GM Packet PO SCH (08:36)
[2019-03-03] MEDS: Bisacodyl 10 MG SUPP PR SCH (08:36)
[2019-03-03] MEDS: Senokot S 8.6-50 MG TAB PO SCH (08:37)
[2019-03-03] MEDS: Senokot 8.6 MG TAB PO SCH ×2 (08:37→20:53)
[2019-03-03] MEDS: cloNIDine 0.3 MG TAB PER TUBE SCH ×4 (10:44→22:13)
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
[2019-03-03] MEDS: Cefepime 2 GM in Sodium Chloride 0.9% 100 ML IVPB SCH ×2 (14:38→22:12)
[2019-03-04] MEDS: cloNIDine 0.3 MG TAB PER TUBE SCH ×4 (05:53→22:16)
[2019-03-04] MEDS: Acetaminophen 650 MG/20.3 ML UDCUP PER TUBE SCH ×3 (05:54→16:57)
[2019-03-04] MEDS: Cefepime 2 GM in Sodium Chloride 0.9% 100 ML IVPB SCH ×3 (05:54→22:15)
[2019-03-04 06:49] LABS: Band 11 % (5-11); Eosinophils 1 % (0-10); Hemoglobin 10.5 g/dL (14.0-18.0); Lymphocytes 9 % (21-51); MDiff Complete? YES; Mean Corpuscular HGB CONC 32.6 g/dL (32.0-36.0); Mean Corpuscular Hemoglobin 30.6 pg (27.0-31.0); Mean Corpuscular Volume 93.9 fL (78.0-98.0); Mean Platelet Volume 8.5 fL (7.4-10.4); Monocytes 10 % (0-10); Neutrophil 69 % (42-75); Platelet Count 384 thou/uL (130-400); Platelet Morphology Comment Appears Adequate; RBC Distribution Width 13.5 % (11.5-14.5); Red Blood Cell (RBC) Count 3.44 mill/uL (4.70-6.10); White Blood Cell (WBC) Count 15.5 thou/uL (4.8-10.8)
[2019-03-04 06:51] LABS: Anion Gap 15 mmol/L (10-20); BUN (Urea Nitrogen) 21 mg/dL (8.9-20.6); Calc. Creatinine Clearance 222 mL/min (70-130); Calcium 8.8 mg/dL (7.8-10.44); Carbon Dioxide 20 mmol/L (22-29); Chloride 111 mmol/L (98-107); Estimated GFR-MDRD Greater than 90; Glucose 113 mg/dL (70-105); Phosphorus 3.6 mg/dL (2.3-4.7); Potassium 3.6 mmol/L (3.5-5.1); Sodium 142 mmol/L (136-145)
--- NOTE | 2019-03-04 08:47 | RAD ---
PORTABLE CHEST: History: Pneumonia. Comparison: Prior day's exam. FINDINGS: Heart size is borderline. Tracheostomy tube is in place. Left subclavian line has been removed. The b ibasilar lung changes show improvement as compared to the prior exam. IMPRESSION: Improving bibasilar lung changes, particularly the changes in the right base showing continuing resol ution. POS: LUIS
[2019-03-04] MEDS: Enoxaparin Sodium 40 MG/0.4 ML SYRINGE SC SCH (09:03)
[2019-03-04] MEDS: Bacitracin Zinc Ointment 30 gm TUBE TOP SCH (09:03)
[2019-03-04] MEDS: Famotidine/PF 20 mg/2ml Vial SLOW IVP SCH ×2 (09:03→20:33)
[2019-03-04] MEDS: Amantadine HCl 100 mg Capsule PO SCH ×2 (09:03→22:15)
[2019-03-04] MEDS: Milk Of Magnesia 30 ML UDCUP PO SCH (09:04)
[2019-03-04] MEDS: Senokot 8.6 MG TAB PO SCH ×2 (09:04→20:33)
[2019-03-04] MEDS: Morphine 4 MG/ML VIAL SLOW IVP PRN ×3 (09:04→22:56)
[2019-03-04] MEDS: Vancomycin HCl 1.5 GM in Sodium Chloride 0.9% 250 ML 300 ML IVPB SCH ×2 (09:20→16:48)
[2019-03-04] MEDS: Micafungin 100 MG in Sodium Chloride 0.9% 100 ML IVPB SCH (09:20)
[2019-03-04 09:26] LABS: Bilirubin Negative (Negative); Blood, Urine Trace (Negative); Clarity CLEAR (Clear); Glucose, Urine (Dipstick) Negative (Negative); Leukocyte Negative (Negative); Nitrite Negative (Negative); Protein, Urine (Dipstick) 30 mg/dL (Neg-Trace); Specific Gravity, Urine 1.024 (1.002-1.036); pH, Urine 7.5 (5.0-9.0)
[2019-03-04 09:30] LABS: Bacteria/HPF None Seen HPF (None Seen); Hyaline Casts/LPF 0-3 HYALINE CAST LPF (0-3 Hyaline); Pathc Cast-AUWi Flag 0.13 (0-2.49); Squamous Epithelial 0-3 HPF (0-3); WBC/HPF 0-3 HPF (0-3)
[2019-03-04] MEDS ORDERED: Artificial Tear Sol 15 ML BOT EA EYE PRN (09:59)
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
[2019-03-05] MEDS: Acetaminophen 650 MG/20.3 ML UDCUP PER TUBE SCH ×4 (00:35→17:21)
[2019-03-05] MEDS: Vancomycin HCl 1.5 GM in Sodium Chloride 0.9% 250 ML 300 ML IVPB SCH ×3 (00:59→16:18)
[2019-03-05] MEDS: cloNIDine 0.3 MG TAB PER TUBE SCH ×4 (04:12→21:11)
[2019-03-05] MEDS: hydrALAZINE 20 MG/ML VIAL SLOW IVP PRN (04:22)
[2019-03-05 05:15] LABS: Anion Gap 15 mmol/L (10-20); BUN (Urea Nitrogen) 18 mg/dL (8.9-20.6); Calc. Creatinine Clearance 202 mL/min (70-130); Calcium 9.2 mg/dL (7.8-10.44); Carbon Dioxide 20 mmol/L (22-29); Chloride 110 mmol/L (98-107); Estimated GFR-MDRD Greater than 90; Glucose 111 mg/dL (70-105); Magnesium 2.4 mg/dL (1.6-2.6); Potassium 3.9 mmol/L (3.5-5.1); Sodium 141 mmol/L (136-145)
[2019-03-05] MEDS: Cefepime 2 GM in Sodium Chloride 0.9% 100 ML IVPB SCH (07:19)
[2019-03-05] MEDS: Morphine 4 MG/ML VIAL SLOW IVP PRN ×3 (07:19→16:23)
[2019-03-05] MEDS: Enoxaparin Sodium 40 MG/0.4 ML SYRINGE SC SCH (07:24)
[2019-03-05] MEDS: Bacitracin Zinc Ointment 30 gm TUBE TOP SCH (07:24)
[2019-03-05] MEDS: Senokot 8.6 MG TAB PO SCH ×2 (07:24→21:10)
[2019-03-05] MEDS: Famotidine/PF 20 mg/2ml Vial SLOW IVP SCH ×2 (07:24→21:10)
[2019-03-05] MEDS: Milk Of Magnesia 30 ML UDCUP PO SCH (07:26)
[2019-03-05] MEDS: Amantadine HCl 100 mg Capsule PO SCH ×2 (07:28→21:10)
[2019-03-05 08:24] LABS: #Basophils 0.1 thou/uL (0.0-0.2); #Eosinphils 0.4 thou/uL (0.0-0.7); #Lymphocytes 1.6 thou/uL (1.20-3.40); #Monocytes 1.5 thou/uL (0.11-0.59); #Neutrophils 13.1 thou/uL (1.40-6.50); %Basophils 0.4 % (0.0-1.0); %Eosinophils 2.6 % (0.0-10.0); %Lymphocytes 9.4 % (21.0-51.0); %Neutrophils 78.7 % (42.0-75.0); Hemoglobin 10.9 g/dL (14.0-18.0); Mean Corpuscular HGB CONC 32.3 g/dL (32.0-36.0); Mean Corpuscular Hemoglobin 30.2 pg (27.0-31.0); Mean Corpuscular Volume 93.5 fL (78.0-98.0); Mean Platelet Volume 8.1 fL (7.4-10.4); Platelet Count 539 thou/uL (130-400); RBC Distribution Width 13.5 % (11.5-14.5); Red Blood Cell (RBC) Count 3.61 mill/uL (4.70-6.10); White Blood Cell (WBC) Count 16.6 thou/uL (4.8-10.8)
[2019-03-05 08:46] LABS: Vancomycin, Trough 13.3 ug/mL
[2019-03-05] MEDS: Micafungin 100 MG in Sodium Chloride 0.9% 100 ML IVPB SCH (08:48)
[2019-03-05] MEDS ORDERED: ISOVUE-370 76%-LOCM 1 ML ONE (10:47)
[2019-03-05] MEDS: MEROPENEM 1 GM/50 ML 1 GM in Premix Bag 1 BAG IVPB SCH ×2 (12:51→21:11)
--- NOTE | 2019-03-05 13:24 | CT ---
HISTORY: Fever. Elevated white count. Evaluate for ischemic bowel. TECHNIQUE: Contrast enhanced CT images of the abdomen and pelvis are obtained after the administration of IV and oral contrast. FINDINGS: Bibasilar areas of lung consolidation are seen, compatible with bibasilar pneumonia. No evidence of free intraperitoneal air is seen. The liver and spleen are unremarkable. The gallbladder and pancreas are unremarkable. The adrenal g lands are unremarkable. The kidneys are unremarkable. The kidneys are unremarkable. No dilated loops of small bowel seen. Good flow is seen in the SMA, celiac, and inferior mesenteric arteries. Normal flow is seen in the superior mesenteric vein. No evidence of small bowel or coloni c wall thickening is seen. The patient has a gastrostomy tube in place. Left sacral and ischial pelvic fractures seen. IMPRESSION: Bilateral lower lobe pneumonia. POS: [facility]
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
[2019-03-05] MEDS ORDERED: Meropenem 1 GM in Sodium Chloride 0.9% 100 ML IVPB SCH (14:00)
[2019-03-06] MEDS: Acetaminophen 650 MG/20.3 ML UDCUP PER TUBE SCH ×5 (00:04→22:31)
[2019-03-06] MEDS: Vancomycin HCl 1.5 GM in Sodium Chloride 0.9% 250 ML 300 ML IVPB SCH ×3 (00:04→17:37)
[2019-03-06] MEDS: Morphine 4 MG/ML VIAL SLOW IVP PRN ×3 (01:33→22:31)
[2019-03-06] MEDS: cloNIDine 0.3 MG TAB PER TUBE SCH ×4 (04:58→22:06)
[2019-03-06] MEDS: MEROPENEM 1 GM/50 ML 1 GM in Premix Bag 1 BAG IVPB SCH (06:46)
[2019-03-06] MEDS: Milk Of Magnesia 30 ML UDCUP PO SCH (08:05)
[2019-03-06] MEDS ORDERED: Senokot 8.6 MG TAB PO PRN (09:30)
[2019-03-06] MEDS: Enoxaparin Sodium 40 MG/0.4 ML SYRINGE SC SCH (09:48)
[2019-03-06] MEDS: Famotidine/PF 20 mg/2ml Vial SLOW IVP SCH ×2 (09:49→20:42)
[2019-03-06] MEDS: Senokot 8.6 MG TAB PO SCH (09:49)
[2019-03-06] MEDS: Micafungin 100 MG in Sodium Chloride 0.9% 100 ML IVPB SCH (09:50)
[2019-03-06] MEDS: Amantadine HCl 100 mg Capsule PO SCH ×2 (09:50→20:42)
[2019-03-06] MEDS: Meropenem 2 GM, Admixture Fee 1 EACH in Sodium Chloride 0.9% 100 ML IVPB SCH ×2 (13:58→21:17)
[2019-03-06] MEDS: Bacitracin Zinc Ointment 30 gm TUBE TOP SCH (16:00)
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
[2019-03-07] MEDS: Vancomycin HCl 1.5 GM in Sodium Chloride 0.9% 250 ML 300 ML IVPB SCH ×2 (00:38→11:07)
[2019-03-07] MEDS: Morphine 4 MG/ML VIAL SLOW IVP PRN ×4 (02:12→21:32)
[2019-03-07] MEDS: cloNIDine 0.3 MG TAB PER TUBE SCH ×5 (03:04→21:49)
[2019-03-07] MEDS: Acetaminophen 650 MG/20.3 ML UDCUP PER TUBE SCH ×3 (05:56→17:31)
[2019-03-07] MEDS: Meropenem 2 GM, Admixture Fee 1 EACH in Sodium Chloride 0.9% 100 ML IVPB SCH ×3 (06:40→21:40)
[2019-03-07] MEDS: Enoxaparin Sodium 40 MG/0.4 ML SYRINGE SC SCH (09:19)
[2019-03-07] MEDS: Amantadine HCl 100 mg Capsule PO SCH ×2 (09:20→20:55)
[2019-03-07] MEDS: Famotidine/PF 20 mg/2ml Vial SLOW IVP SCH ×2 (09:21→20:55)
[2019-03-07] MEDS: Micafungin 100 MG in Sodium Chloride 0.9% 100 ML IVPB SCH (09:43)
[2019-03-07] MEDS: Bacitracin Zinc Ointment 30 gm TUBE TOP SCH (09:44)
[2019-03-07] MEDS: Hydrocodone-Acetamin 15 ML UDCUP PO SCH ×2 (11:14→17:31)
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
[2019-03-08] MEDS: Hydrocodone-Acetamin 15 ML UDCUP PO SCH ×4 (00:20→17:13)
[2019-03-08] MEDS: Acetaminophen 650 MG/20.3 ML UDCUP PER TUBE SCH ×4 (00:20→17:13)
[2019-03-08] MEDS: cloNIDine 0.3 MG TAB PER TUBE SCH ×4 (02:58→21:59)
[2019-03-08] MEDS: Morphine 4 MG/ML VIAL SLOW IVP PRN ×5 (03:26→22:36)
[2019-03-08] MEDS ORDERED: Morphine 4 MG/ML VIAL ONE (04:29)
[2019-03-08] MEDS ORDERED: Morphine 4 MG/ML VIAL SLOW IVP SCH (04:30)
[2019-03-08 06:08] LABS: Hemoglobin 11.8 g/dL (14.0-18.0); Mean Corpuscular HGB CONC 31.5 g/dL (32.0-36.0); Mean Corpuscular Hemoglobin 30.1 pg (27.0-31.0); Mean Corpuscular Volume 95.5 fL (78.0-98.0); Mean Platelet Volume 7.9 fL (7.4-10.4); Platelet Count 967 thou/uL (130-400); Red Blood Cell (RBC) Count 3.93 mill/uL (4.70-6.10)
[2019-03-08] MEDS: Meropenem 2 GM, Admixture Fee 1 EACH in Sodium Chloride 0.9% 100 ML IVPB SCH ×3 (06:09→22:38)
[2019-03-08 06:18] LABS: Band 9 % (5-11); Eosinophils 2 % (0-10); Lymphocytes 11 % (21-51); MDiff Complete? YES; Monocytes 7 % (0-10); Neutrophil 71 % (42-75); Platelet Morphology Comment Appears Increased; White Blood Cell (WBC) Count 21.5 thou/uL (4.8-10.8)
[2019-03-08] MEDS: Famotidine/PF 20 mg/2ml Vial SLOW IVP SCH ×2 (09:28→21:58)
[2019-03-08] MEDS: Micafungin 100 MG in Sodium Chloride 0.9% 100 ML IVPB SCH (10:28)
[2019-03-08] MEDS: Enoxaparin Sodium 40 MG/0.4 ML SYRINGE SC SCH (10:28)
[2019-03-08] MEDS: Amantadine HCl 100 mg Capsule PO SCH ×2 (10:29→22:43)
[2019-03-08] MEDS ORDERED: HYDROcodone/Acetaminophen 10/325 mg Tablet PO SCH (18:15)
[2019-03-08] MEDS: Cyclobenzaprine 10 MG TAB PO SCH (21:59)
[2019-03-08] MEDS: Gabapentin 300 MG CAP PO SCH (21:59)
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
[2019-03-09] MEDS: HYDROcodone/Acetaminophen 10/325 mg Tablet PER TUBE SCH ×4 (01:16→17:56)
[2019-03-09] MEDS: Acetaminophen 650 MG/20.3 ML UDCUP PER TUBE SCH ×4 (01:17→17:55)
[2019-03-09] MEDS: Meropenem 2 GM, Admixture Fee 1 EACH in Sodium Chloride 0.9% 100 ML IVPB SCH ×3 (05:41→21:04)
[2019-03-09] MEDS: cloNIDine 0.3 MG TAB PER TUBE SCH (05:43)
[2019-03-09] MEDS: Enoxaparin Sodium 40 MG/0.4 ML SYRINGE SC SCH (08:58)
[2019-03-09] MEDS: Amantadine HCl 100 mg Capsule PO SCH ×2 (08:58→20:46)
[2019-03-09] MEDS: Cyclobenzaprine 10 MG TAB PO SCH ×3 (08:58→20:46)
[2019-03-09] MEDS: Gabapentin 300 MG CAP PO SCH ×3 (08:58→20:46)
[2019-03-09] MEDS: Micafungin 100 MG in Sodium Chloride 0.9% 100 ML IVPB SCH (08:59)
[2019-03-09] MEDS: Famotidine/PF 20 mg/2ml Vial SLOW IVP SCH ×2 (08:59→20:46)
[2019-03-09] MEDS ORDERED: Aspirin 81 mg Enteric Coated Tablet PO SCH ×2 (09:00→21:00)
[2019-03-09] MEDS: Morphine 4 MG/ML VIAL SLOW IVP PRN ×3 (10:43→18:54)
[2019-03-09] MEDS: cloNIDine 0.2 MG TAB PER TUBE SCH ×2 (11:07→17:56)
[2019-03-09] MEDS ORDERED: Morphine 4 MG/ML VIAL ONE (18:52)
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
[2019-03-10] MEDS: Morphine 2 MG/ML SYRINGE SLOW IVP PRN ×2 (04:40→21:30)
[2019-03-10] MEDS: Meropenem 2 GM, Admixture Fee 1 EACH in Sodium Chloride 0.9% 100 ML IVPB SCH ×3 (05:17→21:23)
[2019-03-10] MEDS: cloNIDine 0.2 MG TAB PER TUBE SCH ×4 (05:17→18:21)
[2019-03-10] MEDS: Acetaminophen 650 MG/20.3 ML UDCUP PER TUBE SCH ×4 (05:17→18:30)
[2019-03-10] MEDS: HYDROcodone/Acetaminophen 10/325 mg Tablet PER TUBE SCH ×4 (05:19→18:21)
[2019-03-10 06:13] LABS: Band 3 % (5-11); Eosinophils 1 % (0-10); Hemoglobin 12.5 g/dL (14.0-18.0); Lymphocytes 12 % (21-51); MDiff Complete? YES; Mean Corpuscular HGB CONC 32.3 g/dL (32.0-36.0); Mean Corpuscular Hemoglobin 30.9 pg (27.0-31.0); Mean Corpuscular Volume 95.8 fL (78.0-98.0); Mean Platelet Volume 7.8 fL (7.4-10.4); Monocytes 2 % (0-10); Neutrophil 82 % (42-75); Platelet Count 898 thou/uL (130-400); Platelet Morphology Comment Appears Increased; RBC Distribution Width 13.7 % (11.5-14.5); Red Blood Cell (RBC) Count 4.05 mill/uL (4.70-6.10); White Blood Cell (WBC) Count 17.4 thou/uL (4.8-10.8)
[2019-03-10 06:18] LABS: Anion Gap 13 mmol/L (10-20); BUN (Urea Nitrogen) 40 mg/dL (8.9-20.6); Calc. Creatinine Clearance 147 mL/min (70-130); Calcium 9.7 mg/dL (7.8-10.44); Carbon Dioxide 27 mmol/L (22-29); Chloride 114 mmol/L (98-107); Estimated GFR-MDRD Greater than 90; Glucose 114 mg/dL (70-105); Potassium 4.4 mmol/L (3.5-5.1); Sodium 150 mmol/L (136-145)
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
[2019-03-10] MEDS: Micafungin 100 MG in Sodium Chloride 0.9% 100 ML IVPB SCH (10:13)
[2019-03-10] MEDS: Amantadine HCl 100 mg Capsule PO SCH ×2 (10:15→21:15)
[2019-03-10] MEDS: Gabapentin 300 MG CAP PO SCH ×3 (10:15→21:16)
[2019-03-10] MEDS: Enoxaparin Sodium 40 MG/0.4 ML SYRINGE SC SCH (10:15)
[2019-03-10] MEDS: Famotidine 20 MG TAB PER TUBE SCH ×2 (10:15→21:15)
[2019-03-10] MEDS: Cyclobenzaprine 10 MG TAB PO SCH ×3 (10:16→21:15)
[2019-03-10] MEDS: Aspirin 81 mg Enteric Coated Tablet PO SCH (10:16)
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
[2019-03-11] MEDS: Acetaminophen 650 MG/20.3 ML UDCUP PER TUBE SCH ×4 (00:11→17:30)
[2019-03-11] MEDS: HYDROcodone/Acetaminophen 10/325 mg Tablet PER TUBE SCH ×4 (00:11→17:30)
[2019-03-11] MEDS: Morphine 2 MG/ML SYRINGE SLOW IVP PRN ×2 (01:03→08:33)
[2019-03-11] MEDS: cloNIDine 0.2 MG TAB PER TUBE SCH ×4 (01:11→17:31)
[2019-03-11] MEDS: Meropenem 2 GM, Admixture Fee 1 EACH in Sodium Chloride 0.9% 100 ML IVPB SCH ×3 (06:07→21:41)
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
[2019-03-11] MEDS ORDERED: cloNIDine 0.2 MG TAB PER TUBE SCH (08:00)
[2019-03-11] MEDS: Famotidine 20 MG TAB PER TUBE SCH ×2 (08:32→21:29)
[2019-03-11] MEDS: Cyclobenzaprine 10 MG TAB PO SCH ×3 (08:32→21:30)
[2019-03-11] MEDS: Aspirin 81 mg Enteric Coated Tablet PO SCH (08:32)
[2019-03-11] MEDS: Gabapentin 300 MG CAP PO SCH ×3 (08:32→21:30)
[2019-03-11] MEDS: Amantadine HCl 100 mg Capsule PO SCH ×2 (08:33→21:30)
[2019-03-11] MEDS: Micafungin 100 MG in Sodium Chloride 0.9% 100 ML IVPB SCH (08:39)
[2019-03-11] MEDS: Metoprolol Tartrate 50 MG TAB PO SCH ×2 (08:42→21:29)
[2019-03-11] MEDS: Enoxaparin Sodium 40 MG/0.4 ML SYRINGE SC SCH (08:42)
[2019-03-11 09:16] LABS: Anion Gap 12 mmol/L (10-20); BUN (Urea Nitrogen) 34 mg/dL (8.9-20.6); Calc. Creatinine Clearance 153 mL/min (70-130); Calcium 9.5 mg/dL (7.8-10.44); Carbon Dioxide 25 mmol/L (22-29); Chloride 114 mmol/L (98-107); Estimated GFR-MDRD Greater than 90; Glucose 117 mg/dL (70-105); Potassium 4.2 mmol/L (3.5-5.1); Sodium 147 mmol/L (136-145)
[2019-03-11 09:23] LABS: Hemoglobin 12.4 g/dL (14.0-18.0); Mean Corpuscular HGB CONC 32.6 g/dL (32.0-36.0); Mean Corpuscular Volume 95.3 fL (78.0-98.0); Mean Platelet Volume 8.2 fL (7.4-10.4); Platelet Count 861 thou/uL (130-400); RBC Distribution Width 13.8 % (11.5-14.5); White Blood Cell (WBC) Count 20.9 thou/uL (4.8-10.8)
[2019-03-11 09:35] LABS: Band 2 % (5-11); Lymphocytes 8 % (21-51); MDiff Complete? YES; Monocytes 11 % (0-10); Neutrophil 79 % (42-75); Platelet Morphology Comment Appears Increased; RBC Morphology Normal
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
[2019-03-12] MEDS: cloNIDine 0.2 MG TAB PER TUBE SCH ×4 (00:03→16:54)
[2019-03-12] MEDS: Acetaminophen 325 MG/10.15 ML UDCUP PER TUBE SCH ×4 (00:04→18:11)
[2019-03-12 06:19] LABS: Band 3 % (5-11); Eosinophils 2 % (0-10); Hemoglobin 11.7 g/dL (14.0-18.0); Lymphocytes 18 % (21-51); MDiff Complete? YES; Mean Corpuscular HGB CONC 31.1 g/dL (32.0-36.0); Mean Corpuscular Hemoglobin 30.4 pg (27.0-31.0); Mean Corpuscular Volume 97.6 fL (78.0-98.0); Mean Platelet Volume 8.3 fL (7.4-10.4); Monocytes 7 % (0-10); Neutrophil 70 % (42-75); Platelet Count 792 thou/uL (130-400); Platelet Morphology Comment Appears Increased; RBC Distribution Width 13.7 % (11.5-14.5); Red Blood Cell (RBC) Count 3.87 mill/uL (4.70-6.10); White Blood Cell (WBC) Count 11.7 thou/uL (4.8-10.8)
[2019-03-12] MEDS: Meropenem 2 GM, Admixture Fee 1 EACH in Sodium Chloride 0.9% 100 ML IVPB SCH (06:27)
[2019-03-12] MEDS: HYDROcodone/Acetaminophen 10/325 mg Tablet PER TUBE SCH ×4 (06:28→18:10)
[2019-03-12 06:29] LABS: Phosphorus 2.8 mg/dL (2.3-4.7)
[2019-03-12 06:30] LABS: Anion Gap 10 mmol/L (10-20); BUN (Urea Nitrogen) 32 mg/dL (8.9-20.6); Calc. Creatinine Clearance 149 mL/min (70-130); Calcium 9.5 mg/dL (7.8-10.44); Carbon Dioxide 26 mmol/L (22-29); Estimated GFR-MDRD Greater than 90; Glucose 129 mg/dL (70-105); Magnesium 3.1 mg/dL (1.6-2.6)
[2019-03-12 06:43] LABS: Chloride 114 mmol/L (98-107); Sodium 146 mmol/L (136-145)
[2019-03-12] MEDS ORDERED: Potassium Phosphate 15 MMOL in Sodium Chloride 0.9% 250 ML 250 ML IVPB SCH (07:15)
[2019-03-12] MEDS: Cyclobenzaprine 10 MG TAB PO SCH ×3 (09:50→21:56)
[2019-03-12] MEDS: Enoxaparin Sodium 40 MG/0.4 ML SYRINGE SC SCH (09:50)
[2019-03-12] MEDS: Amantadine HCl 100 mg Capsule PO SCH ×2 (09:50→21:56)
[2019-03-12] MEDS: Aspirin 81 mg Enteric Coated Tablet PO SCH (09:50)
[2019-03-12] MEDS: Famotidine 20 MG TAB PER TUBE SCH ×2 (09:51→21:56)
[2019-03-12] MEDS: Gabapentin 300 MG CAP PO SCH ×3 (09:51→21:57)
[2019-03-12] MEDS: Metoprolol Tartrate 50 MG TAB PO SCH (09:51)
[2019-03-12] MEDS: Micafungin 100 MG in Sodium Chloride 0.9% 100 ML IVPB SCH (09:55)
[2019-03-12] MEDS ORDERED: ISOVUE-370 76%-LOCM 1 ML ONE (10:40)
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
--- NOTE | 2019-03-12 15:04 | EKG ---
Test Reason : Blood Pressure : / mmHG Vent. Rate : 165 BPM Atrial Rate : 165 BPM P-R Int : 100 ms QRS Dur : 076 ms QT Int : 292 ms P-R-T Axes : 003 014 001 degrees QTc Int : 483 ms Sinus tachycardia with short SC Moderate voltage criteria for LVH, may be normal variant Borderline ECG Confirmed by ANDREA WADDELL ([id number]) on 03/12/2019 3:04:12 PM Referred By: DEISY Confirmed By:ANDREA WADDELL
[2019-03-12] MEDS: Morphine 2 MG/ML SYRINGE SLOW IVP PRN (15:37)
[2019-03-12] MEDS ORDERED: Adenosine 6 MG/2 ML VIAL ONE ×2 (15:59→16:37)
[2019-03-12] MEDS ORDERED: Sodium Chloride 0.9% 500 ML IV SCH (16:15)
[2019-03-12 16:26] LABS: Actual Bicarbonate (HCO3a) 22.8 mEq/L (22-28); Base Excess (BEa) -1.3 mEq/L (-2.0 to +3.0); Calcium, Ionized 1.12 mmol/L (1.12-1.30); Carboxyhemoglobin (COHb) 0.9 gm% (0.0-3.0); Hemoglobin (Hb) 11.1 g/dL (14.0-18.0); O2 Tension (PaO2) 93.6 mmHg (80.0-100.0); Potassium - ABG Lab 4.11 mmol/L (3.70-5.30); pH, Arterial 7.42 (7.35-7.45)
[2019-03-12 16:28] LABS: Puncture Site RRA
[2019-03-12] MEDS: Hydrocortisone Sod Succ/PF 100 mg/2 ml Vial IVP SCH ×2 (16:37→16:52)
[2019-03-12] MEDS ORDERED: Calcium Chloride 1 GM/10 ML Abboject SYRINGE IVP SCH (16:45)
[2019-03-12 17:08] LABS: Lactic Acid 1.1 mmol/L (0.5-2.2)
[2019-03-12 17:11] LABS: Phosphorus 4.1 mg/dL (2.3-4.7)
[2019-03-12 17:15] LABS: Anion Gap 10 mmol/L (10-20); BUN (Urea Nitrogen) 35 mg/dL (8.9-20.6); Calc. Creatinine Clearance 150 mL/min (70-130); Calcium 8.6 mg/dL (7.8-10.44); Carbon Dioxide 25 mmol/L (22-29); Chloride 118 mmol/L (98-107); Estimated GFR-MDRD Greater than 90; Glucose 115 mg/dL (70-105); Potassium 4.4 mmol/L (3.5-5.1); Sodium 149 mmol/L (136-145)
[2019-03-12 17:28] LABS: Anisocytosis SLIGHT = 6-15 cells (100X) (0-5/hpf); Band 1 % (5-11); Hemoglobin 10.8 g/dL (14.0-18.0); Hypochromia SLIGHT = 6-15 cells (100X) (0-5/hpf); Large Platelets SLIGHT; Lymphocytes 5 % (21-51); MDiff Complete? YES; Mean Corpuscular HGB CONC 31.5 g/dL (32.0-36.0); Mean Corpuscular Hemoglobin 30.9 pg (27.0-31.0); Mean Platelet Volume 8.3 fL (7.4-10.4); Monocytes 13 % (0-10); Neutrophil 81 % (42-75); Platelet Count 671 thou/uL (130-400); Platelet Morphology Comment Appears Increased; RBC Distribution Width 13.5 % (11.5-14.5); Red Blood Cell (RBC) Count 3.49 mill/uL (4.70-6.10); White Blood Cell (WBC) Count 12.6 thou/uL (4.8-10.8)
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
[2019-03-12] MEDS: Metoprolol Tartrate 25 MG TAB PO SCH (21:56)
[2019-03-13] MEDS: HYDROcodone/Acetaminophen 10/325 mg Tablet PER TUBE SCH ×4 (01:00→17:35)
[2019-03-13] MEDS: Acetaminophen 325 MG/10.15 ML UDCUP PER TUBE SCH ×4 (01:00→17:35)
[2019-03-13 05:04] LABS: #Basophils 0.1 thou/uL (0.0-0.2); #Eosinphils 0.2 thou/uL (0.0-0.7); #Lymphocytes 2.2 thou/uL (1.20-3.40); #Monocytes 0.9 thou/uL (0.11-0.59); #Neutrophils 6.9 thou/uL (1.40-6.50); %Basophils 0.8 % (0.0-1.0); %Eosinophils 1.8 % (0.0-10.0); %Lymphocytes 21.7 % (21.0-51.0); %Monocytes 8.9 % (0.0-10.0); %Neutrophils 66.8 % (42.0-75.0); Hemoglobin 11.5 g/dL (14.0-18.0); Mean Corpuscular HGB CONC 32.1 g/dL (32.0-36.0); Mean Corpuscular Hemoglobin 31.1 pg (27.0-31.0); Mean Corpuscular Volume 96.7 fL (78.0-98.0); Mean Platelet Volume 8.4 fL (7.4-10.4); Platelet Count 694 thou/uL (130-400); RBC Distribution Width 13.4 % (11.5-14.5); Red Blood Cell (RBC) Count 3.69 mill/uL (4.70-6.10); White Blood Cell (WBC) Count 10.3 thou/uL (4.8-10.8)
[2019-03-13 05:23] LABS: Anion Gap 12 mmol/L (10-20); BUN (Urea Nitrogen) 31 mg/dL (8.9-20.6); Calc. Creatinine Clearance 175 mL/min (70-130); Calcium 9.5 mg/dL (7.8-10.44); Carbon Dioxide 23 mmol/L (22-29); Chloride 117 mmol/L (98-107); Estimated GFR-MDRD Greater than 90; Glucose 115 mg/dL (70-105); Magnesium 2.6 mg/dL (1.6-2.6); Potassium 3.9 mmol/L (3.5-5.1); Sodium 148 mmol/L (136-145)
[2019-03-13 05:29] LABS: Phosphorus 2.7 mg/dL (2.3-4.7)
[2019-03-13] MEDS ORDERED: Potassium Phosphate 15 MMOL in Sodium Chloride 0.9% 250 ML 250 ML IVPB SCH (08:00)
[2019-03-13] MEDS: Enoxaparin Sodium 40 MG/0.4 ML SYRINGE SC SCH (09:17)
[2019-03-13] MEDS: Cyclobenzaprine 10 MG TAB PO SCH ×3 (09:17→20:45)
[2019-03-13] MEDS: Amantadine HCl 100 mg Capsule PO SCH ×2 (09:17→20:45)
[2019-03-13] MEDS: Aspirin 81 mg Enteric Coated Tablet PO SCH (09:17)
[2019-03-13] MEDS: Famotidine 20 MG TAB PER TUBE SCH ×2 (09:18→20:45)
[2019-03-13] MEDS: Metoprolol Tartrate 25 MG TAB PO SCH ×2 (09:18→20:45)
[2019-03-13] MEDS: Micafungin 100 MG in Sodium Chloride 0.9% 100 ML IVPB SCH (09:18)
[2019-03-13] MEDS: Gabapentin 300 MG CAP PO SCH ×3 (09:18→20:45)
[2019-03-13] MEDS: Albuterol Sulfate 1.25 MG/3 ML NEB NEB SCH ×2 (14:10→22:28)
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
--- NOTE | 2019-03-13 18:59 | EKG ---
Test Reason : Blood Pressure : / mmHG Vent. Rate : 186 BPM Atrial Rate : 186 BPM P-R Int : 000 ms QRS Dur : 078 ms QT Int : 244 ms P-R-T Axes : 000 022 008 degrees QTc Int : 429 ms narrow complex regular tachycardia Minimal voltage criteria for LVH, may be normal variant abnormal EKG When compared with ECG of 08-MAR-2019 15:39, No significant change was found Confirmed by DR. Yanna HERRON ([id number]) on 03/13/2019 6:59:03 PM Referred By: Confirmed By:DR. Yanna HERRON
--- NOTE | 2019-03-13 19:00 | EKG ---
Test Reason : Blood Pressure : / mmHG Vent. Rate : 091 BPM Atrial Rate : 091 BPM P-R Int : 138 ms QRS Dur : 082 ms QT Int : 368 ms P-R-T Axes : 071 017 012 degrees QTc Int : 452 ms Poor data quality, interpretation may be adversely affected Normal sinus rhythm Normal ECG When compared with ECG of 12-MAR-2019 15:59, (Unconfirmed) Vent. rate has decreased BY [address] Yanna HERRON ([id number]) on 03/13/2019 7:00:29 PM Referred By: DEISY Confirmed By:DR. Yanna HERRON
[2019-03-14] MEDS: HYDROcodone/Acetaminophen 10/325 mg Tablet PER TUBE SCH ×5 (00:14→23:15)
[2019-03-14] MEDS: Acetaminophen 325 MG/10.15 ML UDCUP PER TUBE SCH ×5 (00:14→23:15)
[2019-03-14 06:29] LABS: Anion Gap 12 mmol/L (10-20); BUN (Urea Nitrogen) 29 mg/dL (8.9-20.6); Calc. Creatinine Clearance 166 mL/min (70-130); Calcium 9.5 mg/dL (7.8-10.44); Carbon Dioxide 23 mmol/L (22-29); Chloride 113 mmol/L (98-107); Estimated GFR-MDRD Greater than 90; Glucose 117 mg/dL (70-105); Potassium 4.1 mmol/L (3.5-5.1); Sodium 144 mmol/L (136-145)
[2019-03-14] MEDS: Albuterol Sulfate 1.25 MG/3 ML NEB NEB SCH ×3 (08:31→22:25)
[2019-03-14] MEDS: Metoprolol Tartrate 25 MG TAB PO SCH ×2 (08:56→21:01)
[2019-03-14] MEDS: Gabapentin 300 MG CAP PO SCH ×3 (08:56→21:01)
[2019-03-14] MEDS: Famotidine 20 MG TAB PER TUBE SCH ×2 (08:56→21:01)
[2019-03-14] MEDS: Cyclobenzaprine 10 MG TAB PO SCH ×3 (08:56→21:01)
[2019-03-14] MEDS: Aspirin 81 mg Enteric Coated Tablet PO SCH (08:56)
[2019-03-14] MEDS: Amantadine HCl 100 mg Capsule PO SCH ×2 (08:56→21:01)
[2019-03-14] MEDS: Enoxaparin Sodium 40 MG/0.4 ML SYRINGE SC SCH (08:57)
[2019-03-14] MEDS: Micafungin 100 MG in Sodium Chloride 0.9% 100 ML IVPB SCH (09:13)
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
[2019-03-15 05:19] LABS: Anion Gap 10 mmol/L (10-20); BUN (Urea Nitrogen) 28 mg/dL (8.9-20.6); Calc. Creatinine Clearance 176 mL/min (70-130); Calcium 9.8 mg/dL (7.8-10.44); Carbon Dioxide 25 mmol/L (22-29); Chloride 112 mmol/L (98-107); Estimated GFR-MDRD Greater than 90; Glucose 115 mg/dL (70-105); Potassium 4.3 mmol/L (3.5-5.1); Sodium 143 mmol/L (136-145)
[2019-03-15] MEDS: Acetaminophen 325 MG/10.15 ML UDCUP PER TUBE SCH ×2 (05:19→14:36)
[2019-03-15] MEDS: HYDROcodone/Acetaminophen 10/325 mg Tablet PER TUBE SCH ×4 (05:20→23:57)
[2019-03-15] MEDS: Albuterol Sulfate 1.25 MG/3 ML NEB NEB SCH ×3 (06:12→22:53)
[2019-03-15] MEDS: Aspirin 81 mg Enteric Coated Tablet PO SCH (09:39)
[2019-03-15] MEDS: Famotidine 20 MG TAB PER TUBE SCH ×2 (09:39→20:41)
[2019-03-15] MEDS: Cyclobenzaprine 10 MG TAB PO SCH ×3 (09:39→20:41)
[2019-03-15] MEDS: Amantadine HCl 100 mg Capsule PO SCH ×2 (09:39→20:41)
[2019-03-15] MEDS: Gabapentin 300 MG CAP PO SCH ×3 (09:39→20:41)
[2019-03-15] MEDS: Metoprolol Tartrate 25 MG TAB PO SCH ×2 (09:39→20:41)
[2019-03-15] MEDS: Micafungin 100 MG in Sodium Chloride 0.9% 100 ML IVPB SCH (09:39)
[2019-03-15] MEDS: Enoxaparin Sodium 40 MG/0.4 ML SYRINGE SC SCH (09:41)
[2019-03-15] MEDS: Acetaminophen 650 MG/20.3 ML UDCUP PER TUBE SCH ×3 (12:36→23:56)
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
[2019-03-16] MEDS: HYDROcodone/Acetaminophen 10/325 mg Tablet PER TUBE SCH ×4 (05:51→23:49)
[2019-03-16] MEDS: Acetaminophen 650 MG/20.3 ML UDCUP PER TUBE SCH ×4 (05:51→23:49)
[2019-03-16] MEDS: Albuterol Sulfate 1.25 MG/3 ML NEB NEB SCH ×3 (06:31→23:17)
[2019-03-16 07:48] LABS: Chloride 109 mmol/L (98-107); Potassium 3.8 mmol/L (3.5-5.1); Sodium 142 mmol/L (136-145)
[2019-03-16 07:49] LABS: Calcium 9.9 mg/dL (7.8-10.44); Glucose 124 mg/dL (70-105)
[2019-03-16 07:50] LABS: Carbon Dioxide 24 mmol/L (22-29)
[2019-03-16 07:51] LABS: Anion Gap 13 mmol/L (10-20)
[2019-03-16 07:52] LABS: Calc. Creatinine Clearance 178 mL/min (70-130); Estimated GFR-MDRD Greater than 90
[2019-03-16 07:53] LABS: BUN (Urea Nitrogen) 27 mg/dL (8.9-20.6)
[2019-03-16] MEDS ORDERED: Potassium Chloride 20 MEQ/100 ML PREMIX BAG IVPB SCH (08:45)
[2019-03-16] MEDS: Gabapentin 300 MG CAP PO SCH ×3 (09:11→21:05)
[2019-03-16] MEDS: Enoxaparin Sodium 40 MG/0.4 ML SYRINGE SC SCH (09:11)
[2019-03-16] MEDS: Cyclobenzaprine 10 MG TAB PO SCH ×3 (09:11→21:05)
[2019-03-16] MEDS: Metoprolol Tartrate 25 MG TAB PO SCH ×2 (09:11→21:05)
[2019-03-16] MEDS: Amantadine HCl 100 mg Capsule PO SCH ×2 (09:11→21:05)
[2019-03-16] MEDS: Famotidine 20 MG TAB PER TUBE SCH ×2 (09:11→21:05)
[2019-03-16] MEDS: Aspirin 81 mg Enteric Coated Tablet PO SCH (09:11)
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
[2019-03-17 05:24] LABS: BUN (Urea Nitrogen) 26 mg/dL (8.9-20.6); Calc. Creatinine Clearance 186 mL/min (70-130); Calcium 9.5 mg/dL (7.8-10.44); Carbon Dioxide 18 mmol/L (22-29); Chloride 109 mmol/L (98-107); Estimated GFR-MDRD Greater than 90; Glucose 121 mg/dL (70-105); Potassium 4.5 mmol/L (3.5-5.1); Sodium 139 mmol/L (136-145)
[2019-03-17 05:30] LABS: Anion Gap 27 mmol/L (10-20)
[2019-03-17] MEDS: Acetaminophen 650 MG/20.3 ML UDCUP PER TUBE SCH ×4 (05:43→23:55)
[2019-03-17] MEDS: HYDROcodone/Acetaminophen 10/325 mg Tablet PER TUBE SCH ×4 (05:43→23:55)
[2019-03-17] MEDS: Albuterol Sulfate 1.25 MG/3 ML NEB NEB SCH ×3 (07:19→22:42)
[2019-03-17] MEDS: Aspirin 81 mg Enteric Coated Tablet PO SCH (09:53)
[2019-03-17] MEDS: Famotidine 20 MG TAB PER TUBE SCH ×2 (09:53→20:05)
[2019-03-17] MEDS: Metoprolol Tartrate 25 MG TAB PO SCH ×2 (09:53→20:06)
[2019-03-17] MEDS: Amantadine HCl 100 mg Capsule PO SCH ×2 (09:53→20:05)
[2019-03-17] MEDS: Enoxaparin Sodium 40 MG/0.4 ML SYRINGE SC SCH (09:53)
[2019-03-17] MEDS: Cyclobenzaprine 10 MG TAB PO SCH ×3 (09:53→20:06)
[2019-03-17] MEDS: Gabapentin 300 MG CAP PO SCH ×3 (09:53→20:05)
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
[2019-03-18] MEDS: Acetaminophen 650 MG/20.3 ML UDCUP PER TUBE SCH ×3 (05:38→19:29)
[2019-03-18] MEDS: HYDROcodone/Acetaminophen 10/325 mg Tablet PER TUBE SCH ×3 (05:38→19:29)
[2019-03-18] MEDS: Albuterol Sulfate 1.25 MG/3 ML NEB NEB SCH ×3 (07:49→22:24)
[2019-03-18] MEDS: Famotidine 20 MG TAB PER TUBE SCH ×2 (09:30→21:01)
[2019-03-18] MEDS: Metoprolol Tartrate 25 MG TAB PO SCH ×2 (09:30→21:02)
[2019-03-18] MEDS: Gabapentin 300 MG CAP PO SCH ×3 (09:30→21:01)
[2019-03-18] MEDS: Cyclobenzaprine 10 MG TAB PO SCH ×3 (09:30→21:00)
[2019-03-18] MEDS: Aspirin 81 mg Enteric Coated Tablet PO SCH (09:30)
[2019-03-18] MEDS: Amantadine HCl 100 mg Capsule PO SCH ×2 (09:30→21:01)
[2019-03-18] MEDS: Enoxaparin Sodium 40 MG/0.4 ML SYRINGE SC SCH (09:32)
[2019-03-18 12:03] LABS: Anion Gap 13 mmol/L (10-20); BUN (Urea Nitrogen) 29 mg/dL (8.9-20.6); Calc. Creatinine Clearance 176 mL/min (70-130); Calcium 10.1 mg/dL (7.8-10.44); Carbon Dioxide 24 mmol/L (22-29); Chloride 108 mmol/L (98-107); Estimated GFR-MDRD Greater than 90; Glucose 103 mg/dL (70-105); Potassium 4.1 mmol/L (3.5-5.1); Sodium 141 mmol/L (136-145)
[2019-03-19] MEDS: HYDROcodone/Acetaminophen 10/325 mg Tablet PER TUBE SCH (01:10)
[2019-03-19] MEDS: Acetaminophen 650 MG/20.3 ML UDCUP PER TUBE SCH ×4 (01:10→17:19)
[2019-03-19 07:10] LABS: Anion Gap 13 mmol/L (10-20); BUN (Urea Nitrogen) 29 mg/dL (8.9-20.6); Calc. Creatinine Clearance 178 mL/min (70-130); Calcium 9.9 mg/dL (7.8-10.44); Carbon Dioxide 25 mmol/L (22-29); Chloride 106 mmol/L (98-107); Estimated GFR-MDRD Greater than 90; Glucose 114 mg/dL (70-105); Potassium 3.9 mmol/L (3.5-5.1); Sodium 140 mmol/L (136-145)
[2019-03-19] MEDS: Albuterol Sulfate 1.25 MG/3 ML NEB NEB SCH ×3 (07:54→21:53)
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
[2019-03-19] MEDS: Amantadine HCl 100 mg Capsule PO SCH ×2 (09:26→20:58)
[2019-03-19] MEDS: Enoxaparin Sodium 40 MG/0.4 ML SYRINGE SC SCH (09:27)
[2019-03-19] MEDS: Famotidine 20 MG TAB PER TUBE SCH ×2 (09:27→20:58)
[2019-03-19] MEDS: Gabapentin 300 MG CAP PO SCH ×3 (09:27→20:58)
[2019-03-19] MEDS: Cyclobenzaprine 10 MG TAB PO SCH ×3 (09:27→20:58)
[2019-03-19] MEDS: Metoprolol Tartrate 25 MG TAB PO SCH ×2 (09:27→20:58)
[2019-03-19] MEDS: Aspirin 81 mg Enteric Coated Tablet PO SCH (09:27)
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
[2019-03-20] MEDS: Acetaminophen 650 MG/20.3 ML UDCUP PER TUBE SCH ×4 (00:36→18:29)
[2019-03-20 05:31] LABS: Anion Gap 14 mmol/L (10-20); BUN (Urea Nitrogen) 27 mg/dL (8.9-20.6); Calc. Creatinine Clearance 181 mL/min (70-130); Calcium 9.8 mg/dL (7.8-10.44); Carbon Dioxide 23 mmol/L (22-29); Chloride 107 mmol/L (98-107); Estimated GFR-MDRD Greater than 90; Glucose 110 mg/dL (70-105); Potassium 3.7 mmol/L (3.5-5.1); Sodium 140 mmol/L (136-145)
[2019-03-20] MEDS: Albuterol Sulfate 1.25 MG/3 ML NEB NEB SCH ×3 (08:30→22:05)
[2019-03-20] MEDS: Famotidine 20 MG TAB PER TUBE SCH ×2 (09:41→21:14)
[2019-03-20] MEDS: Gabapentin 300 MG CAP PO SCH ×3 (09:41→21:14)
[2019-03-20] MEDS: Metoprolol Tartrate 25 MG TAB PO SCH ×2 (09:41→21:14)
[2019-03-20] MEDS: Cyclobenzaprine 10 MG TAB PO SCH ×3 (09:41→21:14)
[2019-03-20] MEDS: Amantadine HCl 100 mg Capsule PO SCH ×2 (09:41→21:13)
[2019-03-20] MEDS: Enoxaparin Sodium 40 MG/0.4 ML SYRINGE SC SCH (09:42)
[2019-03-20] MEDS: Aspirin 81 mg Enteric Coated Tablet PO SCH (09:42)
[2019-03-20 13:06] VITALS: BMI 22.8
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
[2019-03-21 05:53] LABS: Anion Gap 13 mmol/L (10-20); BUN (Urea Nitrogen) 25 mg/dL (8.9-20.6); Calc. Creatinine Clearance 190 mL/min (70-130); Calcium 9.7 mg/dL (7.8-10.44); Carbon Dioxide 24 mmol/L (22-29); Chloride 106 mmol/L (98-107); Estimated GFR-MDRD Greater than 90; Glucose 104 mg/dL (70-105); Potassium 4.1 mmol/L (3.5-5.1); Sodium 139 mmol/L (136-145)
[2019-03-21] MEDS: Acetaminophen 650 MG/20.3 ML UDCUP PER TUBE SCH ×3 (06:26→12:45)
[2019-03-21] MEDS: Albuterol Sulfate 1.25 MG/3 ML NEB NEB SCH ×2 (07:20→14:44)
[2019-03-21] MEDS: Amantadine HCl 100 mg Capsule PO SCH (08:08)
[2019-03-21] MEDS: Enoxaparin Sodium 40 MG/0.4 ML SYRINGE SC SCH (08:08)
[2019-03-21] MEDS: Gabapentin 300 MG CAP PO SCH ×2 (08:09→13:46)
[2019-03-21] MEDS: Cyclobenzaprine 10 MG TAB PO SCH ×2 (08:09→13:46)
[2019-03-21] MEDS: Metoprolol Tartrate 25 MG TAB PO SCH (08:09)
[2019-03-21] MEDS: Famotidine 20 MG TAB PER TUBE SCH (08:09)
[2019-03-21] MEDS: Aspirin 81 mg Enteric Coated Tablet PO SCH (08:09)
[2019-03-21 15:09] VITALS: TEMP 96.3
[2019-03-21 15:22] VITALS: BP 120/81
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
== END 2019-03-21 17:24 | DRG 3 ==
LOC: ERS 23:08 → EDBD 23:08 → CCU 02-25 00:56 → IMCU/EMU 03-07 19:39
PROVIDERS: ADMIT Surgery; ATTEND Surgery
PROC: 00H032Z Insertion of Monitoring Device into Brain, Percutaneous Approach (ICD-10-PCS; 2019-02-25)
PROC: 5A1955Z Respiratory Ventilation, Greater than 96 Consecutive Hours (ICD-10-PCS; 2019-02-25)
PROC: 4A103BD Monitoring of Intracranial Pressure, Percutaneous Approach (ICD-10-PCS; 2019-02-25)
PROC: 03HY32Z Insertion of Monitoring Device into Upper Artery, Percutaneous Approach (ICD-10-PCS; 2019-02-25)
PROC: 05H633Z Insertion of Infusion Device into Left Subclavian Vein, Percutaneous Approach (ICD-10-PCS; 2019-02-25)
PROC: 0B113F4 Bypass Trachea to Cutaneous with Tracheostomy Device, Percutaneous Approach (ICD-10-PCS; principal; 2019-02-28)
PROC: 0DH63UZ Insertion of Feeding Device into Stomach, Percutaneous Approach (ICD-10-PCS; 2019-02-28)
PROC: 5A1955Z Respiratory Ventilation, Greater than 96 Consecutive Hours (ICD-10-PCS; 2019-02-28)
DX: S06.6X9A Traumatic subarachnoid hemorrhage with loss of consciousness of unspecified duration, initial encounter (principal); S32.402A Unspecified fracture of left acetabulum, initial encounter for closed fracture; T79.4XXA Traumatic shock, initial encounter; J96.00 Acute respiratory failure, unspecified whether with hypoxia or hypercapnia; J69.0 Pneumonitis due to inhalation of food and vomit; J15.1 Pneumonia due to Pseudomonas; S22.32XA Fracture of one rib, left side, initial encounter for closed fracture; S22.31XA Fracture of one rib, right side, initial encounter for closed fracture; S32.512A Fracture of superior rim of left pubis, initial encounter for closed fracture; S32.10XA Unspecified fracture of sacrum, initial encounter for closed fracture; S36.039A Unspecified laceration of spleen, initial encounter; S36.113A Laceration of liver, unspecified degree, initial encounter; S27.322A Contusion of lung, bilateral, initial encounter; S27.0XXA Traumatic pneumothorax, initial encounter; E87.1 Hypo-osmolality and hyponatremia; D62 Acute posthemorrhagic anemia; E87.0 Hyperosmolality and hypernatremia; S06.6X1A Traumatic subarachnoid hemorrhage with loss of consciousness of 30 minutes or less, initial encounter; S02.19XA Other fracture of base of skull, initial encounter for closed fracture; S42.001A Fracture of unspecified part of right clavicle, initial encounter for closed fracture; R40.2433 Glasgow coma scale score 3-8, at hospital admission; S06.1X9A Traumatic cerebral edema with loss of consciousness of unspecified duration, initial encounter; D47.3 Essential (hemorrhagic) thrombocythemia; E83.51 Hypocalcemia; E83.39 Other disorders of phosphorus metabolism; E87.6 Hypokalemia; Z79.899 Other long term (current) drug therapy; V89.2XXA Person injured in unspecified motor-vehicle accident, traffic, initial encounter
CPT/HCPCS: 36415; 36416; 36430; 51702; 70450; 70498; 71045; 71260; 71275; 72125; 72170; 74177; 80048; 80053; 80202; 81001; 81003; 81015; 82533; 82805; 83605; 83690; 83735; 83880; 83930; 84100; 85007; 85014; 85018; 85025; 85027; 85610; 85730; 86850; 86900; 86901; 87040; 87070; 87077; 87086; 87186; 87205; 87324; 87449; 90471; 90715; 93005; 93010; 93970; 94003; 94640; 94760; 96365; 96367; 96368; 96375; 96376; 99292; A4216; G0390; J0131; J0153; J0360; J0690; J0692; J1650; J1720; J2001; J2150; J2185; J2248; J2250; J2270; J2405; J2543; J2704; J3010; J3370; J3480; J3490; J7050; J7620; J7799; P9016; P9035; P9045; P9048; P9059; Q9966; S0028